=== PATIENT | male | born 1950 | race Caucasian/White ===

== ENCOUNTER → 2018-07-23 | Outpatient (CLI) | payer MEDICARE ==
[~2018-07-23] MED LIST: ACHYD1T PO; ASP325TEC PO; ATOR40TA PO; CARV6.252 PO; CPR500T PO; DUTA1CPM PO; MTF500T PO; OMG1KC PO; PHEN200T27 PO; PYRI200T4 PO; VITA200C18 PO
[2018-07-23 06:57] LABS: ABSOLUTE RETIC # 48 10e9/L (24-90); BASOPHILS # (AUTO) 0.1 10^3/uL (0.0-0.1); BASOPHILS % (AUTO) 1 % (0-10); EOSINOPHILS # (AUTO) 0.3 10^3/uL (0.0-0.3); EOSINOPHILS % (AUTO) 7 % (0-10); HEMATOCRIT 27 % (40-54); HEMOGLOBIN 7.1 G/DL (13.3-17.7); LYMPHOCYTES # (AUTO) 1.7 X 10^3 (1.0-4.0); LYMPHOCYTES % (AUTO) 33 % (12-44); MEAN CORPUSCULAR HEMOGLOBIN 18 PG (25-34); MEAN CORPUSCULAR HGB CONC 27 G/DL (32-36); MEAN CORPUSCULAR VOLUME 69 FL (80-99); MEAN PLATELET VOLUME 9.5 FL (7.4-10.4); MONOCYTES # (AUTO) 0.7 X 10^3 (0.0-1.0); MONOCYTES % (AUTO) 13 % (0-12); NEUTROPHILS # (AUTO) 2.3 X 10^3 (1.8-7.8); NEUTROPHILS % (AUTO) 46 % (42-75); PLATELET COUNT 306 10^3/uL (130-400); RED CELL DISTRIBUTION WIDTH 20.5 % (10.0-14.5); RETICULOCYTE % 1.25 % (0.50-2.40)
[2018-07-23 08:30] LABS: ANISOCYTOSIS SLIGHT; BAND NEUTROPHILS 0 %; BASOPHILS % (MANUAL) 0 %; ELLIPT/OVALOCYTES SLIGHT; EOSINOPHILS % (MANUAL) 6 %; HYPOCHROMASIA SLIGHT; LYMPHOCYTES % (MANUAL) 26 %; MICROCYTOSIS SLIGHT; MONOCYTES % (MANUAL) 10 %; NEUTROPHILS % (MANUAL) 58 %; POIKILOCYTOSIS SLIGHT
== END ==
LOC: LAB 06:35
PROVIDERS: ATTEND Nurse Practitioner Family
DX: D64.9 Anemia, unspecified (principal)
CPT/HCPCS: 36415; 82607; 82728; 82746; 83540; 85007; 85027; 85045

== ENCOUNTER 2018-07-24 08:52 | Outpatient (CLI) | payer MEDICARE ==
[~2018-07-24] VITALS: Ht 180.3 cm; Wt 113.4 kg
[2018-07-24] VITALS (7 sets, daily range): BP systolic 134–178; BP diastolic 76–102
== END 2018-07-24 15:10 | disposition home or self-care (01) ==
LOC: SDC 08:52
PROVIDERS: ATTEND Family Medicine
DX: D64.9 Anemia, unspecified (principal)
CPT/HCPCS: 36415; 36430; 85014; 85018; 86850; 86900; 86901; 86920

== ENCOUNTER → 2018-08-13 | Outpatient (CLI) | payer MEDICARE ==
--- NOTE | 2018-08-13 12:25 | Diagnostic Imaging Report ---
PROCEDURE: CT urinary tract, rule out kidney stone. TECHNIQUE: Multiple contiguous axial images were obtained through the abdomen and pelvis without the use of intravenous contrast. INDICATION: Hematuria, nephrolithiasis. CORRELATION STUDY: 01/09/2013. FINDINGS: LOWER THORAX: Few areas of wispy-like density including the lingula, left upper lobe, as well as medial right lower lobe are present. They do appear to be somewhat changed from prior study. Suggestion of some thickening along the minor fissure plane. Heart size is mildly enlarged. Small hiatal hernia. LIVER: Unremarkable. GALLBLADDER: Multiple small gallstones are present. No suggestion for significant bile ductal dilatation. SPLEEN: Unremarkable. PANCREAS: Mild diffuse fatty atrophic changes are present. ADRENAL GLANDS: Unremarkable. KIDNEYS: There is presence of bilateral renal stones. The overall stone burden has increased since prior study. There is now a larger developing staghorn-type calculus of the right renal pelvis measuring approximately 3.4 x 1.2 cm in axial plane x 2.5 cm craniocaudal. Additional smaller stones about the superior and inferior pole are present. Slightly exophytic mass in the superior pole of the right kidney, incompletely characterized but favors probable cyst but does appear to be more prominent from prior study. On the left, slightly fragmented stone at the renal pelvis measures approximately 13 x 10 mm in the axial plane x 11 mm craniocaudal. Additional smaller nonobstructing over the superior and inferior poles as well. 2.3 x 1.5 x 2.2 cm slightly exophytic mass at the anterior interpolar region of the left kidney is present, incompletely characterized but does appear to be of fairly low density. There is no suggestion for overt hydronephrosis of either kidney. No definitive ureteric stone. There may be a partially duplicated right renal collecting system. ABDOMINAL AORTA: Unremarkable, nonaneurysmal. GASTROINTESTINAL TRACT: Extensive surgical changes at the level of the stomach are present. Gastrointestinal tract demonstrates no obstruction. No definitive evidence for inflammation. Colonic diverticulosis, particularly of the sigmoid and distal descending colon. Mild severity of fecal retention. Fat-containing bilateral inguinal hernias, left greater than right. No bowel involvement. URINARY BLADDER: There are multiple, likely at least 15 or more bladder stones present of various sizes. These ranging from a few millimeters up to 15 mm in size. The overall bladder stone burden has increased. Bladder is relatively decompressed. REPRODUCTIVE: Prostate gland is enlarged measuring 6.3 x 5.0 cm. OSSEOUS STRUCTURES: Extensive prior internal fixation hardware has been placed over the left hemipelvis. Mild anteriorly wedged lower thoracic and lumbar vertebral bodies. No acute bony abnormalities are suggested. OTHER: None. IMPRESSION: 1. Bilateral nephrolithiasis and presence of multiple bladder stones. The overall severity of stone burden has increased over both the kidneys as well as within the urinary bladder. Developing bilateral staghorn calculus are noted, right greater than left. 2. Low-density masses of both kidneys, not completely characterized on prior studies but favor probable renal cysts. 3. Cholelithiasis. 4. Colonic diverticulosis. 5. Patchy densities at the lung bases. These may be reflective of some areas of scarring or atelectasis. The possibility of superimposed pneumonitis is not excluded by imaging findings. Dictated by: Dictated on workstation # [id number]
== END ==
LOC: RAD 11:31
PROVIDERS: ATTEND Nurse Practitioner Family
DX: N20.0 Calculus of kidney (principal); N21.0 Calculus in bladder; N28.89 Other specified disorders of kidney and ureter; K80.20 Calculus of gallbladder without cholecystitis without obstruction; K57.30 Diverticulosis of large intestine without perforation or abscess without bleeding; J98.4 Other disorders of lung
CPT/HCPCS: 74176

== ENCOUNTER → 2018-09-16 | Outpatient (CLI) | payer MEDICARE ==
--- NOTE | 2018-09-16 14:48 | Diagnostic Imaging Report ---
INDICATION: Hematuria. COMPARISON: 02/04/2013 FINDINGS: Two supine radiographic views of the abdomen were obtained and again show bilateral nephrolithiasis as well as multiple bulky calcifications projecting over the urinary bladder. Postsurgical changes in the left hemipelvis are also again noted. No unexpected radiopaque foreign bodies are seen. Small bowel loops are nondistended. There is no large collection of free intraperitoneal air. Included portions of the lung bases are clear. IMPRESSION: 1. Bilateral nephrolithiasis. 2. Multiple bulky calculi within the urinary bladder. 3. Nonobstructive small bowel gas pattern. Dictated by: Dictated on workstation # [id number]
== END ==
LOC: RAD 12:29
PROVIDERS: ATTEND Urology
DX: N20.0 Calculus of kidney (principal); N21.0 Calculus in bladder; Z98.890 Other specified postprocedural states
CPT/HCPCS: 74018

== ENCOUNTER 2018-09-24 05:47 | Outpatient (CLI) | payer MEDICARE ==
[~2018-09-24] VITALS: Ht 180.3 cm; Wt 113.4 kg
== END 2018-09-24 10:24 | disposition home or self-care (01) ==
LOC: PREOP 05:47
PROVIDERS: ATTEND Surgery
DX: Z01.818 Encounter for other preprocedural examination (principal)

== ENCOUNTER 2018-10-01 08:51 | Day surgery (SDC) | payer MEDICARE ==
[~2018-10-01] VITALS: Ht 180.3 cm; Wt 113.4 kg
--- OUTSIDE RECORDS SUMMARY | 2018-10-01 08:55 | XMS REPORT ---
Author Author WHITNEY FAJARDO [facility] Address [address] [place] [address] Care Team Providers Care Service Desk Manager Name Role Phone WHITNEY FAJARDO Unavailable PROBLEMS Type Condition ICD9-CM Code OWZ74-EJ Code Onset Dates Condition Status SNOMED Code Problem Acute pain of right knee M25.561 Active 38854012 Problem Unspecified prostatitis 601.9 Active 5176271 Problem Suspected chronic obstructive pulmonary disease based on initial evaluation J44.9 Active 91521382 Problem Right hand pain M79.641 Active 49959405 Problem Essential hypertension I10 Active 09264880 Problem Diabetes mellitus type 2 in nonobese E11.9 Active 986815627 Problem Renal calculi N20.0 Active 84999926 Problem Arthritis of right knee M19.90 Active 145935010 ALLERGIES Substance Reaction Event Type Date Status Glipizide 2.5 Mg Tablet Extended Release 24hr Unknown Non Drug Allergy Dec, Active ENCOUNTERS Encounter Location Date Diagnosis [facility] [address] [place] [address] [id number] Feb, [facility] [id number] [place] [address] [id number] Jan, Renal calculi N20.0 [facility] [address] [place] [address] [id number] Dec, Hematuria, unspecified type R31.9 ; Renal calculi N20.0 and Angular cheilitis K13.0 [facility] [address] [place] [id number] [address] Nov, Dental caries K02.9 [facility] [address] [place] [address] [id number] Nov, Chronic cough R05 and Suspected chronic obstructive pulmonary disease based on initial evaluation J44.9 [facility] [id number] [place] [address] [id number] Nov, Cough R05 [facility] [address] [id number] [id number] Nov, Bronchitis J40 [facility] [address] [id number] [address] October, Encounter for dental examination Z01.20 [facility] [id number] [place] [address] [id number] May, Essential hypertension I10 and Arthritis of right knee M19.90 [facility] [id number] [id number] Jan, Essential hypertension I10 ; Diabetes mellitus type 2 in nonobese E11.9 and Screening for prostate cancer Z12.5 [facility] [address] [place] [address] [id number] Dec, Vertigo R42 and Essential hypertension I10 [facility] [address] [place] [address] [id number] October, Acute cystitis with hematuria N30.01 and History of kidney stones Z87.442 [facility] [address] [id number] Jul, Essential hypertension I10 [facility] [address] [place] [address] [id number] Jun, Right hand pain M79.641 and Essential hypertension I10 [address] [id number] [place] [id number] Jun, Right hand pain M79.641 [facility] [id number] [id number] Apr, Arthritis of right knee M19.90 ; Right hand pain M79.641 ; Essential hypertension I10 and Diabetes mellitus type 2 in nonobese E11.9 [facility] [address] [place] [address] [id number] Mar, Essential hypertension I10 and Renal calculi N20.0 [facility] [address] [place] [address] [id number] Feb, 2016 Essential hypertension I10 ; Arthritis of right knee M19.90 ; Insect bite , initial encounter W57.XXXA and Boil of lower extremity L02.429 [facility] [id number] [place] [address] [id number] Feb, [facility] [id number] [place] [address] [id number] Jan, Arthritis of right knee M19.90 and Essential hypertension I10 [facility] [id number] [place] [address] [id number] Jan, Acute pain of right knee M25.561 [facility] [address] [id number] [place] [id number] Jan, Acute pain of right knee M25.561 [facility] [place] [id number] [place] [address] [id number] Dec, Acute pain of right knee M25.561 and Diabetes mellitus type 2 in nonobese E11.9 [facility] [id number] [place] [address] Sep, [facility] [id number] [place] [address]7074- 3398 Sep, [facility] [id number] [place] [address] [id number] May, [facility] [id number] [place] [address]- 7816 May, [facility] [id number] [place] [address] 91842- 7951 Jan, [facility] [id number] [place] [address] 48163[address] 4432 Jan, [facility] [id number] [place] [address] 9982 Jan, [facility] [id number] [place] [address] [id number] Jan, [facility] [id number] [place] [address] 77543- 3705 Jan, [facility] [place] [facility] [address] [id number] [place] [address] Jan, [facility] [place] [address] [id number] [place] [id number] Jan, [facility] [place] [facility] [address] [facility] [id number] [place] 401[address]- 7128 Jan, [facility] [place] [facility] [address] [facility] [id number] [place] [address] Jan, [facility] [address] [id number] [place] [id number] Dec, [facility] [place] [facility] [address] [facility] [id number] [place] [address]272 Dec, [facility] [address] [facility] [id number] [place] [id number] Dec, [facility] [place] [facility] [address] [facility] [id number] [place] [address] Dec, [facility] [address] [facility] [id number] [place] [id number] Dec, [facility] [place] [facility] [address] [facility] [id number] [place] [address] Dec, [facility] [address] [facility] [id number] [place] [id number] Dec, [facility] [place] [facility] [address] [facility] [id number] [place] [address] Nov, [facility] [address] [id number] [place] [id number] Nov, [facility] [place] [facility] [address] [facility] [id number] [place] [address] October, [facility] [address] [id number] [place] [id number] October, [facility] [address] [id number] [place] [id number] Aug, [facility] [address] [id number] [place] [id number] Aug, [facility] [address] [id number] [place] [phone] Aug, [facility] [address] [id number] [place] [id number] Aug, [facility] [address] [id number] [place] [id number] Aug, [facility] [address] [id number] [place] [id number] Jun, [facility] [address] [id number] [place] [id number] Jun, [facility] [address] [id number] [place] [id number] Apr, [facility] [address] [place] [address]7097- 4139 Apr, [facility] [address] [id number] [place] [id number] Mar, [facility] [id number] [address] Mar, [facility] [address] [id number] [place] [id number] Feb, [facility] [address] [id number] [place] [id number] Jan, [facility] [address] [id number] [place] [id number] October, [facility] [address] [place] [address] October, [facility] [address] [id number] [place] [id number] Jul, [facility] [address] [id number] [place] [id number] Jun, [facility] [address] [place] [address] Mar, [facility] [place] [facility] [address] [place] [address] 7773 May, [facility] [address] [id number] [address] 07 May, 2010 [facility] [address] [place] [address] May, [facility] [address] [place] [address] 1709 Apr, [facility] [address] [place] [address] 4668 Apr, [facility] [address] [id number] [address] 7026 Apr, [facility] [address] [place] [address] 08123- 0619 Jan, [facility] [address] [place] [address] October, [facility] [address] [place] [address] 25565- 1349 Jul, [facility] [address] [place] [address]- 2015 Apr, [facility] [address] [place] [address] Apr, [facility] [address] [place] [address] Jan, [facility] [id number] [address] Aug, IMMUNIZATIONS No Known Immunizations SOCIAL HISTORY Never Assessed REASON FOR VISIT having blood in urination x 2 weeks, started having right sided pain on Saturday. tonia Frost PLAN OF CARE Activity Details Follow Up 1 Week Reason:flank pain VITAL SIGNS Height 71 in 2018-01-16 Weight 240 lbs 2018-01-16 Temperature 98.2 degrees Fahrenheit 2018-01-16 Heart Rate 68 bpm 2018-01-16 Respiratory Rate 16 2018-01-16 BMI 33.47 kg/m2 2018-01-16 Blood pressure systolic 140 mmHg 2018-01-16 Blood pressure diastolic 70 mmHg 2018-01-16 MEDICATIONS Medication Instructions Dosage Frequency Start Date End Date Duration Status Tamsulosin HCl 0.4 MG Orally Once a day 1 capsule 24h Dec,Jan 30 day(s) Active Hydrocodone-Acetaminophen 5-325 MG Orally 3 times a day 1 tablet as needed 8h Dec, Active Advair Diskus 250-50 MCG/DOSE Inhalation Twice a day 1 puff 12h Nov, Active Blodgett 7.5-325 MG Orally with food every 6 hrs 1 tablet as needed for pain 6h Nov, 3 days Active Fluconazole 100 mg Orally qod 1 tablet Dec, Jan, 10 day( s) Active Albuterol Sulfate HFA 108 (90 Base) mcg/act Inhalation 4 times a day 2 puffs as needed 6h Nov, Active Singulair 10 mg Orally Once a day 1 tablet 24h Nov, 30 day(s) Active RESULTS Name Result Date Reference Range UA LONG DIP (IN HOUSE) 2018-01-16 Lot # [id number] Exp date 10/10 Clarity cloudy Color dark yellow Odor no GLU neg ELISABETH neg KET neg SG >=1.030 BLO 3+ pH 5.5 Protein 3+ URO 0.2 NIT neg NEISHA neg Lot # Exp date CT Scan : Abd & Pelvis w/o contrast (STONE PROTOCOL) 2018-01-24 PROCEDURES Procedure Date Ordered Result Body Site URINALYSIS, AUTO, W/O SCOPE January 16, 2018 [facility] VISIT ESTABLISHED PATIENT January 16, 2018 INSTRUCTIONS MEDICATIONS ADMINISTERED No Known Medications MEDICAL (GENERAL) HISTORY Type Description Date Medical History hypertension Medical History sciatica Medical History back pain Medical History Diabetes mellitus without mention of complication, type II or unspecified type, not stated as uncontrolled Medical History Bariatric surgery status Surgical History gastric bypass 2012 Surgical History right knee arthroscopy Surgical History hardware left hip/pelvis Hospitalization History surgeries
--- OUTSIDE RECORDS SUMMARY | 2018-10-01 08:55 | XMS REPORT ---
Author Author Migration, Doctor Organization [facility] Address Unknown Phone Unavailable Care Team Providers Care Aviation Manager Name Role Phone Migration, Doctor Unavailable Unavailable PROBLEMS Type Condition ICD9-CM Code QJG61-UT Code Onset Dates Condition Status SNOMED Code Problem Diabetes mellitus type 2 in nonobese E11.9 Active 869092636 Problem Acute pain of right knee M25.561 Active 63143710 Problem Suspected chronic obstructive pulmonary disease based on initial evaluation J44.9 Active 62875849 Problem Iron deficiency anemia, unspecified iron deficiency anemia type D50.9 Active 68853646 Problem Arthritis of right knee M19.90 Active 486852386 Problem Essential hypertension I10 Active 37982814 Problem Renal calculi N20.0 Active 11908304 Problem Right hand pain M79.641 Active 86698770 ALLERGIES No Information ENCOUNTERS Encounter Location Date Diagnosis [address] [id number] [id number] Aug, [address] [id number] Jul, Iron deficiency anemia, unspecified iron deficiency anemia type D50.9 ; Arthritis of right knee M19.90 ; Renal calculi N20.0 ; Hematuria, unspecified type R31.9 and Suspected chronic obstructive pulmonary disease based on initial evaluation J44.9 [id number] [id number] Jun, [facility] [place] [address] [facility] [id number] [place] [address] [address] Jun, Anemia, unspecified type D64.9 [id number] [id number] Jun, Anemia, unspecified type D64.[address] [id number] [place] [phone] Jun, Low hemoglobin D64.[address] [place] [address] [id number] Jun, Low hemoglobin D64.9 [facility] [id number] [place] [address] [id number] Jun, Renal calculi N20.0 and Suspected chronic obstructive pulmonary disease based on initial evaluation J44.9 [facility] [id number] [place] [address] [id number] Apr, Diabetes mellitus type 2 in nonobese E11.9 ; Renal calculi N20.0 ; Suspected chronic obstructive pulmonary disease based on initial evaluation J44.9 and Essential hypertension I10 [facility] [id number] [place] [address] [id number] Mar, Renal calculi N20.0 and Suspected chronic obstructive pulmonary disease based on initial evaluation J44.9 [facility] [id number] [place] [address] [id number] Jan, Renal calculi N20.0 [facility] [id number] [place] [address] [id number] Dec, Hematuria, unspecified type R31.9 ; Renal calculi N20.0 and Angular cheilitis K13.0 [facility] [id number] [place] [address] Nov, Dental caries K02.9 [facility] [id number] [place] [address] [id number] Nov, Chronic cough R05 and Suspected chronic obstructive pulmonary disease based on initial evaluation J44.9 [facility] [id number] [place] [address] [id number] Nov, Cough R05 [address] [id number] [place] [address] [id number] Nov, Bronchitis J40 [facility] [id number] [place] [address] October, Encounter for dental examination Z01.20 [facility] [id number] [place] [address] [id number] May, Essential hypertension I10 and Arthritis of right knee M19.90 [facility] [id number] [place] [address] [id number] Jan, Essential hypertension I10 ; Diabetes mellitus type 2 in nonobese E11.9 and Screening for prostate cancer Z12.5 [address] [id number] [place] [address] [id number] Dec, Vertigo R42 and Essential hypertension I10 [address] [id number] October, Acute cystitis with hematuria N30.01 and History of kidney stones Z87.[id number] [place] [address] [id number] Jul, Essential hypertension I10 [id number] [place] [address] [id number] Jun, Right hand pain M79.641 and Essential hypertension I10 [address] [id number] [place] [phone] Jun, Right hand pain M79.641 [facility] [id number] [place] [address] [id number] Apr, Arthritis of right knee M19.90 ; Right hand pain M79.641 ; Essential hypertension I10 and Diabetes mellitus type 2 in nonobese E11.9 [id number] [place] [address] [id number] Mar, Essential hypertension I10 and Renal calculi N20.0 [id number] [place] [address] [id number] Feb, Essential hypertension I10 ; Arthritis of right knee M19.90 ; Insect bite , initial encounter W57.XXXA and Boil of lower extremity L02.429 [id number] [place] [address] [id number] Feb, [address] [id number] Jan, Arthritis of right knee M19.90 and Essential hypertension I10 [id number] [place] [address] [id number] Jan, Acute pain of right knee M25.561 [facility] [address] [id number] [place] [id number] Jan, Acute pain of right knee M25.561 [facility] [place] [address] [facility] [id number] [id number] Dec, Acute pain of right knee M25.561 and Diabetes mellitus type 2 in nonobese E11.9 [facility] [place] [address] [id number] [place] [address] Sep, [facility] [address] [id number] [place] [address] 3[address] Sep, [facility] [place] [address] [facility] [id number][place] [id number] May, [facility] [address] [facility] [id number] [place] [address] 67[address] May, [facility] [address] [id number] [address]- 65[address] Jan, [facility] [address] [id number] [address]- 4[address] Jan, [facility] [address] [facility] [id number] [place] [address] Jan, [facility] [place] [address] [id number] [id number] Jan, [facility] [address] [facility] [id number] [place] [address]- [address] Jan, [facility] [address] [id number] [place] 09[place]- 9190 Jan, [facility] [place] [address] [facility] [id number], [place] [phone] Jan, [facility] [address] [facility] [id number] [place] [address]- [address]39 Jan, [facility] [address] [facility] [id number] [place] [address]- [address] Jan, [facility] [address] [id number] [place] [id number] Dec, [facility] [address] [facility] [id number] [place] [address]- 9[address] Dec, [facility] [address] [id number] [place] [id number] Dec, [facility] [address] [facility] [id number] [place] [address]- [address] Dec, [facility] [address] [id number] [place] [id number] Dec, [facility] [address] [facility] [id number] [place] [address]- 7184 Dec, [facility] [address] [id number] [place] [id number] Dec, [facility] [address]00565100[place] [address]- 9152 Nov, [facility] [address] [id number] [place] [id number] Nov, [facility] [address] [facility] [id number] [place] 52212328- 8005 October, [facility] [address] [id number] [place] [id number] October, [facility] [address] [id number] [place] [id number] Aug, [facility] [address] [id number] [place] [id number] Aug, [facility] [address] [id number] [place] [id number] Aug, [facility] [address] [id number] [place] [id number] Aug, [facility] [address] [id number] [place] [id number] Aug, [facility] [address] [id number] [place] [id number] Jun, [facility] [address] [id number] [place] [id number] Jun, [facility] [address] [id number] [place] [id number] Apr, [facility] [place] [facility] [address] [id number] [place] [address]- 2546 Apr, [facility] [address] [id number] [place] [id number] Mar, [facility] [place] [facility] [address] [facility] [id number] [place] [address]- 2546 Mar, [facility] [address] [id number] [place] [id number] Feb, [facility] [address] [id number] [place] [id number] Jan, [facility] [address] [id number] [place] [id number] October, [facility] [place] [facility] [address] [facility] [id number] [place] [address]- 2546 October, [facility] [address] [id number] [place] [id number] Jul, [facility] [address] [id number] [place] [id number] Jun, [facility] [place] [facility] [address] [facility] [id number] [place] [address]- 4896 Mar, [facility] [place] [facility] [address] [facility] [id number] [place] [address]- 2316 May, [facility] [place] [facility] [address] [facility] [id number] [place] [address]- [address] May, [facility] [place] [facility] [address] [facility] [id number] [place] [address]- 7084 May, [facility] [place] [facility] [address] [facility] [id number] [place] [address]- 8923 Apr, [facility] [place] [facility] [address] [facility] [id number] [place] [address]- 9681 Apr, [facility] [place] [facility] [address] [id number] [address]- 2546 Apr, [facility] [place] [address] [id number] [address]- [address] Jan, [facility] [place] [address]00565100[place] [address]- 2546 October, [facility] [place] [address]00565100[place] [address]- 2546 Jul, [facility] [place] [address]00565100[place] [address]- 2546 Apr, [facility] [place] [address]00565100[place] [address]- 8132 Apr, [facility] [place] [address]00565100[place] [address] 2546 Jan, [facility] [place] [address]00565100[place] [address]- [address] Aug, IMMUNIZATIONS No Known Immunizations SOCIAL HISTORY Never Assessed REASON FOR VISIT EMR-[facility]AN OF CARE VITAL SIGNS MEDICATIONS Unknown Medications RESULTS No Results PROCEDURES No Known procedures INSTRUCTIONS MEDICATIONS ADMINISTERED No Known Medications MEDICAL (GENERAL) HISTORY Type Description Date Medical History hypertension Medical History sciatica Medical History back pain Medical History Diabetes mellitus without mention of complication, type II or unspecified type, not stated as uncontrolled Medical History Bariatric surgery status Surgical History gastric bypass 2012 Surgical History right knee arthroscopy Surgical History hardware left hip/pelvis Hospitalization History surgeries Hospitalization History outpt blood transfusion 07/2018
--- OUTSIDE RECORDS SUMMARY | 2018-10-01 08:56 | XMS REPORT ---
Author Author WHITNEY FAJARDO [facility] Address [address] [place] [address] Care Team Providers Care Section Hand Name Role Phone WHITNEY FAJARDO Unavailable PROBLEMS Type Condition ICD9-CM Code NDJ40-IB Code Onset Dates Condition Status SNOMED Code Problem Acute pain of right knee M25.561 Active 62500283 Problem Unspecified prostatitis 601.9 Active 4235968 Problem Suspected chronic obstructive pulmonary disease based on initial evaluation J44.9 Active 57948180 Problem Right hand pain M79.641 Active 30829474 Problem Essential hypertension I10 Active 18390860 Problem Diabetes mellitus type 2 in nonobese E11.9 Active 133172918 Problem Renal calculi N20.0 Active 85794141 Problem Arthritis of right knee M19.90 Active 153113131 ALLERGIES Substance Reaction Event Type Date Status GlipiZIDE unknown Drug Allergy Jan, Active ENCOUNTERS Encounter Location Date Diagnosis [facility] [address] [place] [address] [id number] Feb, [facility] [id number] [place] [address] [id number] Jan, Renal calculi N20.0 [facility] [address] [place] [address] [id number] Dec, Hematuria, unspecified type R31.9 ; Renal calculi N20.0 and Angular cheilitis K13.0 [facility] [address] [place] [id number] [address] Nov, Dental caries K02.9 [facility] [address] [place] [address] [id number] Nov, Chronic cough R05 and Suspected chronic obstructive pulmonary disease based on initial evaluation J44.9 [facility] [address] [place] [address] [id number] Nov, Cough R05 [facility] [id number] [place] [id number] Nov, Bronchitis J40 [facility] [address] [place] [id number] [address] October, Encounter for dental examination Z01.20 [facility] [id number] [place] [address] [id number] May, Essential hypertension I10 and Arthritis of right knee M19.90 [facility] [id number] [place] [address] [id number] Jan, Essential hypertension I10 ; Diabetes mellitus type 2 in nonobese E11.9 and Screening for prostate cancer Z12.5 [facility] [id number] [place] [address] [id number] 14 Dec, 2016 Vertigo R42 and Essential hypertension I10 [facility] [id number] [place] [address] [id number] October, Acute cystitis with hematuria N30.01 and History of kidney stones Z87.442 [facility] [id number] [place] [id number] Jul, Essential hypertension I10 [facility] [id number] [place] [address] [id number] Jun, Right hand pain M79.641 and Essential hypertension I10 [address] [id number] [id number] Jun, Right hand pain M79.641 [facility] [id number] [place] [address] [id number] Apr, Arthritis of right knee M19.90 ; Right hand pain M79.641 ; Essential hypertension I10 and Diabetes mellitus type 2 in nonobese E11.9 [facility] [address] [place] [address] [id number] Mar, Essential hypertension I10 and Renal calculi N20.0 [facility] [id number] [place] [address] [id number] 15 Feb, 2016 Essential hypertension I10 ; Arthritis of right knee M19.90 ; Insect bite , initial encounter W57.XXXA and Boil of lower extremity L02.429 [facility] [place] [id number] [place] [id number] Feb, [facility] [place] [id number] [place] [address] [id number] Jan, Arthritis of right knee M19.90 and Essential hypertension I10 [facility] [place] [id number] [place] [address] [id number] Jan, Acute pain of right knee M25.561 [facility] [place] [address] [id number][place] [id number] Jan, Acute pain of right knee M25.561 [facility] [place] [id number] [place] [address] [id number] Dec, Acute pain of right knee M25.561 and Diabetes mellitus type 2 in nonobese E11.9 [facility] [place] [id number] [place] [address] [id number]- 3908 Sep, [facility] [place] [id number] [place] [address]56- 9001 Sep, [facility] [id number] [place] [address] [id number] May, [facility] [place] [id number] [place] [address] 28407- 5952 May, [facility] [place] [address] [place] [address] [id number]- 2456 Jan, [facility] [place] [id number] [place] [address] 10786336- 2820 Jan, [facility] [place] [id number] [place] [address] [id number]- 3705 Jan, [facility] [id number] [place] [address] [id number] Jan, [facility] [place] [address] [place] [address] 319887- 4919 Jan, [facility] [place] [address] [id number] [address]- 0479 Jan, [facility] [address] [id number] [place] [id number] Jan, [facility] [place] [facility] [address] [facility] [id number] [place] [address]- 7660 Jan, [facility] [place] [facility] [address] [facility] [id number] [place] [address]- 4026 Jan, [facility] [address] [id number] [place] [id number] Dec, [facility] [place] [facility] [address] [id number] [place] [address]- 9341 Dec, [facility] [address] [id number] [place] [id number] Dec, [facility] [place] [facility] [address] [facility] [id number], [place] [address]- 1083 Dec, [facility] [address] [id number] [place] [id number] Dec, [facility] [place] [facility] [address] [facility] [id number], [place] [address]- 6088 Dec, [facility] [address] [id number] [place] [id number] Dec, [facility] [place] [facility] [address] [facility] [id number], [place] [address]- 2649 Nov, [facility] [address] [id number] [place] [id number] Nov, [facility] [place] [facility] [address] [id number], [place] [address]- 3260 October, [facility] [address] [id number] [place] [id number] October, [facility] [address] [id number] [place] [id number] Aug, [facility] [address] [id number] [place] 038662274 Aug, [facility] [place] [address] [id number] [place] [id number] Aug, [facility] [place] [address] [id number] [place] [id number] Aug, [facility] [place] [address] [id number] [place] [id number] Aug, [facility] [place] [address] [id number] [place] [id number] Jun, [facility] [place] [address] [id number] [place] [id number] Jun, [facility] [place] [address] [id number] [place] [id number] Apr, [facility] [address] [facility] [id number], [place] [address]- 7906 Apr, [facility] [place] [address] [id number] [place] [id number] Mar, [facility] [address]00565100[place], [place] [address]- 7826 Mar, [facility] [place] [address] [id number] [place] [id number] Feb, [facility] [address] [id number] [place] [id number] Jan, [facility] [address] [id number] [place] [id number] October, [facility] [address]00565100[place], [place] [address]- 3466 October, [facility] [address] [id number] [place] [id number] Jul, [facility] [address] [id number] [place] [id number] Jun, [facility] [address]00565100[place], [place] [address]- 8076 Mar, [facility] [address]00565100[place], [place] [address]- 9886 May, [facility] [address]00565100[place], [place] [address]- 0685 May, [facility] [place] [address]00565100[place], [place] [address]- 4686 May, [facility] [place] [address] [place] [address] 08689- 6907 Apr, [facility] [place] [address] [place] [address] 34387- 7767 Apr, [facility] [place] [id number] [place] [address] 04080- 5019 Apr, [facility] [place] [address] [place] [phone] Jan, [facility], [place], [facility] [id number] [place] [address] [phone] October, [facility], [place], [facility] [id number] [place] [address] [phone] Jul, [facility], [place], [facility] [id number] [place] [address] [phone] Apr, [facility], [place], [facility] [id number] [place] [address] [phone] Apr, [facility], [place], [facility] [id number] [place] [address] [phone] Jan, [facility], [place], [facility] [id number] [phone] Aug, IMMUNIZATIONS No Known Immunizations SOCIAL HISTORY Never Assessed REASON FOR VISIT Discuss CT results, still having pain and hematuria--MIREYA Tpaia PLAN OF CARE Activity Details Follow Up 4 Weeks Reason:kidney stone VITAL SIGNS Height 71 in 2018-01-28 Weight 237.4 lbs 2018-01-28 Temperature 98.2 degrees Fahrenheit 2018-01-28 Heart Rate 82 bpm 2018-01-28 Respiratory Rate 16 2018-01-28 BMI 33.11 kg/m2 2018-01-28 Blood pressure systolic 150 mmHg 2018-01-28 Blood pressure diastolic 90 mmHg 2018-01-28 MEDICATIONS Medication Instructions Dosage Frequency Start Date End Date Duration Status Albuterol Sulfate HFA 108 (90 Base) mcg/act Inhalation 4 times a day 2 puffs as needed 6h Nov, Not-Taking Tamsulosin HCl 0.4 MG Orally Once a day 1 capsule 24h Dec,Jan Active Singulair 10 mg Orally Once a day 1 tablet 24h Nov, 30 day(s) Not-Taking Advair Diskus 250-50 MCG/DOSE Inhalation Twice a day 1 puff 12h Nov, Not-Taking Hydrocodone-Acetaminophen 5-325 MG Orally 3 times a day 1 tablet as needed 8h Dec, Active RESULTS Name Result Date Reference Range UA LONG DIP (IN HOUSE) 2018-01-28 Lot # [id number] Exp date 05/23/18 Clarity cloudy Color brown Odor no GLU trace ELISABETH neg KET neg SG 1.025 BLO 3+ pH 6.0 Protein 3+ URO 1.0 NIT neg NEISHA neg Lot # Exp date PROCEDURES Procedure Date Ordered Result Body Site [facility] VISIT ESTABLISHED PATIENT Jan 28, 2018 URINALYSIS, AUTO, W/O SCOPE Jan 28, 2018 INSTRUCTIONS MEDICATIONS ADMINISTERED No Known Medications [...]
--- OUTSIDE RECORDS SUMMARY | 2018-10-01 08:56 | XMS REPORT ---
Author Author JODI PAIZ Organization [facility] Address [address] [place] [address] Care Team Providers Care Counter Maker Name Role Phone JODI PAIZ Unavailable PROBLEMS Type Condition ICD9-CM Code CRI26-BY Code Onset Dates Condition Status SNOMED Code Problem Acute pain of right knee M25.561 Active 82829367 Problem Unspecified prostatitis 601.9 Active 3391828 Problem Suspected chronic obstructive pulmonary disease based on initial evaluation J44.9 Active 20747851 Problem Right hand pain M79.641 Active 03828257 Problem Essential hypertension I10 Active 03046644 Problem Diabetes mellitus type 2 in nonobese E11.9 Active 399841146 Problem Renal calculi N20.0 Active 67340554 Problem Arthritis of right knee M19.90 Active 713922923 ALLERGIES Substance Reaction Event Type Date Status Glipizide 2.5 Mg Tablet Extended Release 24hr Unknown Non Drug Allergy Nov, Active ENCOUNTERS Encounter Location Date Diagnosis [facility] [id number] [place] [address] [id number] Feb, [facility] [id number] [place] [address] [id number] Jan, Renal calculi N20.0 [facility] [id number] [place] [address] [id number] Dec, Hematuria, unspecified type R31.9 ; Renal calculi N20.0 and Angular cheilitis K13.0 [facility] [id number] [place] [address] Nov, Dental caries K02.9 [facility] [id number] [place] [id number] Nov, Chronic cough R05 and Suspected chronic obstructive pulmonary disease based on initial evaluation J44.9 [facility] [id number] [phone] Nov, Cough R05 [facility] [id number] [place] [address] [id number] Nov, Bronchitis J40 [facility] [address] [place] [address] October, Encounter for dental examination Z01.20 [facility] [id number] [place] [address] [id number] May, Essential hypertension I10 and Arthritis of right knee M19.90 [facility] [id number] [place] [address] [id number] Jan, Essential hypertension I10 ; Diabetes mellitus type 2 in nonobese E11.9 and Screening for prostate cancer Z12.5 [facility] [address] [place] [address] [id number] Dec, Vertigo R42 and Essential hypertension I10 [facility] [id number] [place] [address] [id number] October, Acute cystitis with hematuria N30.01 and History of kidney stones Z87.442 [facility] [id number] [place] [address] [id number] Jul, Essential hypertension I10 [facility] [id number] [place] [address] [id number] Jun, Right hand pain M79.641 and Essential hypertension I10 [address] [id number] [id number] Jun, Right hand pain M79.641 [facility] [id number] [place] [id number] Apr, Arthritis of right knee M19.90 ; Right hand pain M79.641 ; Essential hypertension I10 and Diabetes mellitus type 2 in nonobese E11.9 [facility] [address] [id number] Mar, Essential hypertension I10 and Renal calculi N20.0 [facility] [id number] [place] [address] [id number] Feb, Essential hypertension I10 ; Arthritis of right knee M19.90 ; Insect bite , initial encounter W57.XXXA and Boil of lower extremity L02.429 [facility] [id number] [place] [address] [id number] Feb, [facility] [id number] [place] [address] [id number] Jan, Arthritis of right knee M19.90 and Essential hypertension I10 [facility] [id number] [place] [address] [id number] Jan, Acute pain of right knee M25.561 [address] [address] [id number][place] [phone] Jan, Acute pain of right knee M25.561 [facility] [place] [id number] [place] [address] [id number] Dec, Acute pain of right knee M25.561 and Diabetes mellitus type 2 in nonobese E11.9 [facility] [id number] [place] [address] [id number]- 4378 Sep, [facility] [id number] [place] [address] 22761- 1524 Sep, [facility] [id number] [place] [address] [id number] May, [facility] [id number] [place] [address] 51163- 5344 May, [facility] [id number] [place] [address] [id number]- 8820 Jan, [facility] [id number] [place] [address] 51229- 4114 Jan, [facility] [id number] [place] [address] [id number]- 1423 Jan, [facility] [id number] [place] [address] [id number] Jan, [facility] [id number] [place] [address] 33499- 6220 Jan, [facility] [place] [facility] [address] [id number] [place] [address]- 2415 Jan, [facility] [place] [address] [id number] [place] [id number] Jan, [facility] [place] [facility] [address] [facility] [id number] [place] [address]- 8601 Jan, [facility] [place] [facility] [address] [facility] [id number] [place] [address]- 0596 Jan, [facility] [address] [id number] [place] [id number] Dec, [facility] [place] [facility] [address] [facility] [id number] [place] [address]- 1550 Dec, [facility] [address] [id number] [place] [phone] Dec, [facility] [place] [facility] [address] [facility] [id number] [address] Dec, [facility] [address] [id number] [place] [id number] Dec, [facility] [place] [facility] [address] [facility] [id number], [place] [address]- 9348 Dec, [facility] [address] [id number] [place] [id number] Dec, [facility] [place] [facility] [address] [facility] [id number], [place] [address]- 1286 Nov, [facility] [address] [id number] [place] [id number] Nov, [facility] [place] [facility] [address] [id number] [place] [address]- 5480 October, [facility] [address] [id number] [place] [id number] October, [facility] [address] [id number] [place] [id number] Aug, [facility] [place] [address] [id number] [place] [id number] Aug, [facility] [place] [address] [id number] [place] [id number] Aug, [facility] [address] [id number] [place] [id number] Aug, [facility] [address] [id number] [place] [id number] Aug, [facility] [address] [id number] [place] [phone] Jun, [facility] [address] [id number] [place] [phone] Jun, [facility] [address] [id number] [place] [id number] Apr, [facility] [address]00565100[place], [place] [address] 3506 Apr, [facility] [address] [id number] [place] [id number] Mar, [facility] [address]00565100[place], [place] [address] 3900 Mar, [facility] [address] [id number] [place] [id number] Feb, [facility] [address] [id number] [place] [id number] Jan, [facility] [address] [id number] [place] [id number] October, [facility] [address]00565100[place], [place] [address] 5[address] October, [facility] [address] [id number] [place] [id number] Jul, [facility] [address] [id number] [place] [phone] Jun, [facility] [place] [address]00565100[place], [place] [address]- 9686 Mar, [facility] [address]00565100[place], [place] [address]- 6128 May, [facility] [address]00565100[place], [place] [address] 2546 May, [facility] [address]00565100[place], [place] [address]- 1046 May, [facility] [address]00565100[place], [place] [address]- 2725 Apr, [facility] [id number] [place] [address] 07252- 0244 Apr, [facility] [address]00565100[place], [place] [address]- 7895 Apr, [facility] [id number] [place] [address] 72811- 4705 Jan, [facility] [address]00565100[place], [place] [address]- 3598 October, [facility] [id number] [place] [address] 73467- 4762 Jul, [facility] [address]00565100[place], [place] [address]- 0841 Apr, [facility] [address]65[address], [place] [address]- 0409 Apr, [facility] [address]00565100[place], [place] [address]- 0784 Jan, [facility] [address] [id number], [place] [address]- 4946 Aug, IMMUNIZATIONS No Known Immunizations SOCIAL HISTORY Never Assessed REASON FOR VISIT Cough for 2 weeks. Had x-ray today Maricruz GOMES PLAN OF CARE Activity Details Follow Up prn if not improving with PCP in 1 week Reason:Cough VITAL SIGNS Height 71 in 2017-12-16 Weight 235.6 lbs 2017-12-16 Temperature 98.5 degrees Fahrenheit 2017-12-16 Heart Rate 74 bpm 2017-12-16 Respiratory Rate 18 2017-12-16 BMI 32.86 kg/m2 2017-12-16 Blood pressure systolic 122 mmHg 2017-12-16 Blood pressure diastolic 64 mmHg 2017-12-16 MEDICATIONS Medication Instructions Dosage Frequency Start Date End Date Duration Status Advair Diskus 250-50 MCG/DOSE Inhalation Twice a day 1 puff 12h Nov, Active Albuterol Sulfate HFA 108 (90 Base) mcg/act Inhalation 4 times a day 2 puffs as needed 6h 12 Nov, 2017 Active Singulair 10 mg Orally Once a day 1 tablet 24h Nov, 30 day(s) Active RESULTS No Results PROCEDURES Procedure Date Ordered Result Body Site [facility] VISIT ESTABLISHED PATIENT December 16, 2017 INSTRUCTIONS MEDICATIONS ADMINISTERED No Known Medications MEDICAL [...]
--- OUTSIDE RECORDS SUMMARY | 2018-10-01 08:56 | XMS REPORT ---
Author Author MARCOS ÁLVAREZ Organization [facility] Address [address] [place] [address] Care Team Providers Care Software Manager Name Role Phone MARCOS ÁLVAREZ Unavailable PROBLEMS Type Condition ICD9-CM Code FKA58-GU Code Onset Dates Condition Status SNOMED Code Problem Acute pain of right knee M25.561 Active 91446354 Problem Unspecified prostatitis 601.9 Active 7343725 Problem Suspected chronic obstructive pulmonary disease based on initial evaluation J44.9 Active 71299144 Problem Right hand pain M79.641 Active 36043070 Problem Essential hypertension I10 Active 00384372 Problem Diabetes mellitus type 2 in nonobese E11.9 Active 070538736 Problem Renal calculi N20.0 Active 43053369 Problem Arthritis of right knee M19.90 Active 939943684 ALLERGIES Substance Reaction Event Type Date Status Glipizide 2.5 Mg Tablet Extended Release 24hr Unknown Non Drug Allergy Nov, Active ENCOUNTERS Encounter Location Date Diagnosis [facility] [id number] [place] [address] [id number] Feb, [facility] [id number] [place] [address] [id number] Jan, Renal calculi N20.0 [facility] [id number] [place] [address] [id number] Dec, Hematuria, unspecified type R31.9 ; Renal calculi N20.0 and Angular cheilitis K13.0 [facility] [id number] [place] [address] Nov, Dental caries K02.9 [facility] [id number] [place] [address] [id number] Nov, Chronic cough R05 and Suspected chronic obstructive pulmonary disease based on initial evaluation J44.9 [facility] [address] [place] [id number] Nov, Cough R05 [facility] [id number], [place] [id number] Nov, Bronchitis J40 [facility] [id number] [address] October, Encounter for dental examination Z01.20 [facility] [id number] [place] [address] [id number] May, Essential hypertension I10 and Arthritis of right knee M19.90 [facility] [id number] [place] [address] [id number] Jan, Essential hypertension I10 ; Diabetes mellitus type 2 in nonobese E11.9 and Screening for prostate cancer Z12.5 [facility] [id number] [place] [address] [id number] 14 Dec, 2016 Vertigo R42 and Essential hypertension I10 [facility] [id number] [place] [address] [id number] October, Acute cystitis with hematuria N30.01 and History of kidney stones Z87.442 [facility] [id number] [place] [address] [id number] Jul, Essential hypertension I10 [facility] [id number] [place] [address] [id number] Jun, Right hand pain M79.641 and Essential hypertension I10 [address] [id number] [place] [id number] Jun, Right hand pain M79.641 [facility] [id number] [place] [address] [id number] Apr, Arthritis of right knee M19.90 ; Right hand pain M79.641 ; Essential hypertension I10 and Diabetes mellitus type 2 in nonobese E11.9 [facility] [id number] [place] [address] [id number] Mar, Essential hypertension I10 and Renal calculi N20.0 [facility] [id number] [place] [address] [id number] Feb, Essential hypertension I10 ; Arthritis of right knee M19.90 ; Insect bite , initial encounter W57.XXXA and Boil of lower extremity L02.429 [facility] [id number] [place] [address] [id number] Feb, [facility] [place] [id number] [place] [address] [id number] Jan, Arthritis of right knee M19.90 and Essential hypertension I10 [facility] [place] [id number] [place] [address] [id number] Jan, Acute pain of right knee M25.561 [facility] [place] [address] [facility] [id number] [place] [id number] Jan, Acute pain of right knee M25.561 [facility] [place] [id number] [place] [address] [id number] Dec, Acute pain of right knee M25.561 and Diabetes mellitus type 2 in nonobese E11.9 [facility] [id number] [place] [address] 398758- 6910 Sep, [facility] [id number] [place] [address] 97282- 0365 Sep, [facility] [id number] [place] [address] [id number] May, [facility] [id number] [place] [address] 34168- 6163 May, [facility] [id number] [place] [address] 64310- 0561 Jan, [facility] [id number] [place] [address] 15845- 3990 Jan, [facility] [id number] [place] [address] [id number]- 8947 Jan, [facility] [id number] [place] [address] [id number] Jan, [facility] [id number] [place] [address] 03005407- 2514 Jan, [facility] [place] [facility] [address] [id number] [place] [address]- 9454 Jan, [facility] [address] [id number] [place] [id number] Jan, [facility] [place] [facility] [address] [id number] [place] [address]- 3116 Jan, [facility] [place] [facility] [address] [facility] [id number] [place] [address]- 6449 Jan, [facility] [address] [id number] [place] [id number] Dec, [facility] [place] [facility] [address] [id number] [place] [address]- 0646 Dec, [facility] [address] [id number] [place] [id number] Dec, [facility] [place] [facility] [address] [facility] [id number] [place] [address]- 5198 Dec, [facility] [address] [id number] [place] [phone] Dec, [facility] [place] [facility] [address] [facility] [id number] [place] [address]- 6846 Dec, [facility] [address] [id number] [place] [id number] Dec, [facility] [place] [facility] [address] [facility] [id number] [address]- 2546 Nov, [facility] [address] [id number] [place] [id number] Nov, [facility] [place] [facility] [address] [id number] [place] [address]- 2546 October, [facility] [address] [id number] [place] [id number] October, [facility] [address] [id number] [place] [id number] Aug, [facility] [address] [id number] [place] [id number] Aug, [facility] [address] [id number] [place] [id number] Aug, [facility] [address] [id number] [place] [address] Aug, [facility] [address] [id number] [place] [id number] Aug, [facility] [address] [id number] [place] [id number] Jun, [facility] [address] [id number] [place] [id number] Jun, [facility] [address] [id number] [place] [id number] Apr, [facility] [address] [facility] [id number], [place] [address]- 7209 Apr, [facility] [address] [id number] [place] [id number] Mar, [facility] [address]00565100[place], [place] [address]- 3626 Mar, [facility] [address] [id number] [place] [id number] Feb, [facility] [address] [id number] [place] [id number] Jan, [facility] [address] [id number] [place] [id number] October, [facility] [address]00565[address], [place] [address]- 7620 October, [facility] [address] [id number] [place] [id number] Jul, [facility] [address] [id number] [place] [id number] Jun, [facility] [address]00565100[place], [place] [address]- 4340 Mar, [facility] [place] [facility] [address]00565100[place], [place] [address]- 8300 May, [facility] [address] [id number], [place] [address]- 7737 May, [facility] [address]00565100[place], [place] [address]- 6491 May, [facility] [address]00565100[place], [place] [address]- 6814 Apr, [facility] [address] [place] [address] 41088- 6252 Apr, [facility] [address] [place] [address] 76450- 7255 Apr, [facility] [id number] [place] [address] 12877- 7257 Jan, [facility] [id number] [place] [address] 53795- 5669 October, [facility] [id number] [place] [address] 58586- 6678 Jul, [facility] [id number] [place] [address] 91097- 6232 Apr, [facility] [id number] [place] [address] 73995- 2721 Apr, [facility] [address]00565100[place], [place] [address]- 5884 Jan, [facility] [address]65100[place], [place] [address]- 8267 Aug, IMMUNIZATIONS No Known Immunizations SOCIAL HISTORY Never Assessed REASON FOR VISIT TE PLAN OF CARE Activity Details Follow Up PRN Reason: VITAL SIGNS Height 71 in 2017-12-17 Heart Rate 75 bpm 2017-12-17 Blood pressure systolic 122 mmHg 2017-12-17 Blood pressure diastolic 64 mmHg 2017-12-17 MEDICATIONS Medication Instructions Dosage Frequency Start Date End Date Duration Status Albuterol Sulfate HFA 108 (90 Base) mcg/act Inhalation 4 times a day 2 puffs as needed 6h 12 Nov, 2017 Active Singulair 10 mg Orally Once a day 1 tablet 24h 25 Nov, 2017 30 day(s) Active Advair Diskus 250-50 MCG/DOSE Inhalation Twice a day 1 puff 12h 25 Nov, 2017 Active Guinda 7.5-325 MG Orally with food every 6 hrs 1 tablet as needed for pain 6h Nov, 3 days Active RESULTS No Results PROCEDURES Procedure Date Ordered Result Body Site EXTRAC ERUPTED TOOTH/EXPOSED ROOT December 17, 2017 EXTRAC ERUPTED TOOTH/EXPOSED ROOT December 17, 2017 SURG REMOVAL ERUPTED TOOTH December 17, 2017 EXTRAC ERUPTED TOOTH/EXPOSED ROOT December 17, 2017 EXTRAC ERUPTED TOOTH/EXPOSED ROOT December 17, 2017 EXTRAC ERUPTED TOOTH/EXPOSED ROOT December 17, 2017 EXTRAC ERUPTED TOOTH/EXPOSED ROOT December 17, 2017 EXTRAC ERUPTED TOOTH/EXPOSED ROOT December 17, 2017 INSTRUCTIONS MEDICATIONS ADMINISTERED No Known Medications [...]
--- OUTSIDE RECORDS SUMMARY | 2018-10-01 08:56 | XMS REPORT ---
Author Author WHITNEY FAJARDO [facility] Address [address] [place] [address] Care Team Providers Care Calibrator Barometers Name Role Phone WHITNEY FAJARDO Unavailable PROBLEMS Type Condition ICD9-CM Code QOZ30-LK Code Onset Dates Condition Status SNOMED Code Problem Acute pain of right knee M25.561 Active 81926556 Problem Unspecified prostatitis 601.9 Active 3184354 Problem Suspected chronic obstructive pulmonary disease based on initial evaluation J44.9 Active 64378398 Problem Right hand pain M79.641 Active 30262774 Problem Essential hypertension I10 Active 98973299 Problem Diabetes mellitus type 2 in nonobese E11.9 Active 332847385 Problem Renal calculi N20.0 Active 18419407 Problem Arthritis of right knee M19.90 Active 861585593 ALLERGIES Substance Reaction Event Type Date Status Glipizide 2.5 Mg Tablet Extended Release 24hr Unknown Non Drug Allergy Nov, Active ENCOUNTERS Encounter Location Date Diagnosis [facility] [id number] [place] [address] [id number] Feb, [facility] [id number] [place] [address] [id number] Jan, Renal calculi N20.0 [facility] [address] [place] [address] [id number] Dec, Hematuria, unspecified type R31.9 ; Renal calculi N20.0 and Angular cheilitis K13.0 [facility] [address] [id number] [address] Nov, Dental caries K02.9 [facility] [address] [place] [address] [id number] Nov, Chronic cough R05 and Suspected chronic obstructive pulmonary disease based on initial evaluation J44.9 [facility] [id number] [place] [address] [id number] Nov, Cough R05 [facility] [address] [id number] [place] [id number] Nov, Bronchitis J40 [facility] [address] [id number] [address] October, Encounter for dental examination Z01.20 [facility] [id number] [place] [address] [id number] May, Essential hypertension I10 and Arthritis of right knee M19.90 [facility] [id number] [place] [id number] Jan, Essential hypertension I10 ; Diabetes mellitus type 2 in nonobese E11.9 and Screening for prostate cancer Z12.5 [facility] [address] [place] [address] [id number] Dec, Vertigo R42 and Essential hypertension I10 [facility] [address] [place] [address] [id number] October, Acute cystitis with hematuria N30.01 and History of kidney stones Z87.442 [facility] [address]100[address] [place] [id number] Jul, Essential hypertension I10 [facility] [address] [place] [address] [id number] Jun, Right hand pain M79.641 and Essential hypertension I10 [address] [id number] [id number] Jun, Right hand pain M79.641 [facility] [id number] [place] [id number] Apr, Arthritis of right knee M19.90 ; Right hand pain M79.641 ; Essential hypertension I10 and Diabetes mellitus type 2 in nonobese E11.9 [facility] [address] [place] [address] [id number] Mar, Essential hypertension I10 and Renal calculi N20.0 [facility] [address] [place] [address] [id number] Feb, 2016 Essential hypertension I10 ; Arthritis of right knee M19.90 ; Insect bite , initial encounter W57.XXXA and Boil of lower extremity L02.429 [facility] [id number] [place] [address] [id number] Feb, [facility] [id number] [place] [address] [id number] Jan, Arthritis of right knee M19.90 and Essential hypertension I10 [facility] [id number] [place] [address] [id number] Jan, Acute pain of right knee M25.561 [facility] [place] [address] [id number][place] [phone] Jan, Acute pain of right knee M25.561 [facility] [place] [id number] [place] [address] [id number] Dec, Acute pain of right knee M25.561 and Diabetes mellitus type 2 in nonobese E11.9 [facility] [id number] [place] [address] Sep, [facility] [id number] [place] [address] 54112- 5902 Sep, [facility] [id number] [place] [address] [id number] May, [facility] [id number] [place] [address] 20996- 7321 May, [facility] [id number] [place] [address] 38779- 9155 Jan, [facility] [id number] [place] [address] 94007- 6410 Jan, [facility] [id number] [place] [address] 54971- 2634 Jan, [facility] [id number] [place] [address] [id number] Jan, [facility] [id number] [place] [address] 41473- 5108 Jan, [facility] [place] [facility] [address] [id number] [place] [address]- [address]800 Jan, [facility] [address] [id number] [place] [id number] Jan, [facility] [place] [facility] [address] [facility] [id number] [place] [id number] 4381 Jan, [facility] [place] [facility] [address] [facility] [id number] [place] [address]- 4081 Jan, [facility] [address] [id number] [place] [id number] Dec, [facility] [place] [facility] [address] [facility] [id number] [place] [address]- 0167 Dec, [facility] [address] [facility] [id number] [place] [id number] Dec, [facility] [place] [facility] [address] [facility] [id number] [address]- [address] Dec, [facility] [address] [facility] [id number] [place] [id number] Dec, [facility] [place] [facility] [address] [facility] [id number], [place] [address]- 4521 Dec, [facility] [address] [facility] [id number] [place] [id number] Dec, [facility] [place] [facility] [address] [facility] [id number], [place] [address] 3[address] Nov, [facility] [address] [id number] [place] [id number] Nov, [facility] [place] [facility] [address] [facility] [id number] [place] [address]- 4406 October, [facility] [address] [id number] [place] [id number] October, [facility] [address] [id number] [place] [id number] Aug, [facility] [address] [id number] [place] [id number] Aug, [facility] [address] [id number] [place] [id number] Aug, [facility] [address] [id number] [place] [phone] Aug, [facility] [address] [id number] [place] [id number] Aug, [facility] [address] [id number] [place] [id number] Jun, [facility] [address] [id number] [place] [id number] Jun, [facility] [address] [id number] [place] [id number] Apr, [facility] [address] [place] [address] 21581- 0624 Apr, [facility] [address] [id number] [place] [id number] Mar, [facility] [address] [id number], [place] [address] 7596 Mar, [facility] [address] [id number] [place] [id number] Feb, [facility] [address] [id number] [place] [id number] Jan, [facility] [address] [id number] [place] [id number] October, [facility] [address]00565[place] [address] 40[address] October, [facility] [address] [id number] [place] [id number] Jul, [facility] [address] [id number] [place] [id number] Jun, [facility] [address]00565[place], [place] [address] 3197 Mar, [facility] [place] [facility] [address]00565[place], [place] [address] 1756 May, [facility] [address] [id number], [place] [address] 07 May, 2010 [facility] [address]005[place], [place] [address]- 4858 May, [facility] [address]00565[place], [place] [address]- 6885 Apr, [facility] [address], [place] [address]- 2421 Apr, [facility] [id number] [place] [address] 746622- 7016 Apr, [facility] [id number] [place] [address] 215817- 8172 Jan, [facility] [id number] [place] [address] 99250- 8691 October, [facility] [id number] [place] [address] 06721- 5113 Jul, [facility] [address] [place] [address] 47449- 3455 Apr, [facility] [address] [place] [address] 52389- 7872 Apr, [facility] [address]65[place], [place] [address]- 2151 Jan, [facility] [address]65[address], [place] [address]- 0631 Aug, IMMUNIZATIONS No Known Immunizations SOCIAL HISTORY Never Assessed REASON FOR VISIT Cough started about 4 months ago Cecelia SILVERMAN PLAN OF CARE Activity Details Follow Up 2 Weeks Reason:bronchitis VITAL SIGNS Height 71 in 2017-12-03 Weight 237 lbs 2017-12-03 Temperature 98.1 degrees Fahrenheit 2017-12-03 Heart Rate 78 bpm 2017-12-03 Respiratory Rate 18 2017-12-03 Oximetry 96 % 2017-12-03 BMI 33.05 kg/m2 2017-12-03 Blood pressure systolic 128 mmHg 2017-12-03 Blood pressure diastolic 72 mmHg 2017-12-03 MEDICATIONS Medication Instructions Dosage Frequency Start Date End Date Duration Status Benzonatate 100 mg Orally Three times a day 1 capsule as needed 8h Nov, Active Albuterol Sulfate HFA 108 (90 Base) mcg/act Inhalation 4 times a day 2 puffs as needed 6h Nov, Active Medrol (Toby) 4 MG as directed Nov, Active RESULTS Name Result Date Reference Range Chest X-ray PA and Lateral 2017-12-16 PROCEDURES Procedure Date Ordered Result Body Site [facility] VISIT ESTABLISHED PATIENT December 03, 2017 INSTRUCTIONS MEDICATIONS ADMINISTERED No Known Medications [...]
--- OUTSIDE RECORDS SUMMARY | 2018-10-01 08:57 | XMS REPORT ---
Author Author WHITNEY FAJARDO Organization [employer] Address Unknown Phone Unavailable Care Team Providers Care Bake Room Worker Name Role Phone WHITNEY FAJARDO CP Unavailable Allergies No Known Allergies Problems Problem Type Condition Code Onset Dates Condition Status Problem Bariatric surgery status V45.86 Active Problem Abdominal pain, left lower quadrant 789.04 Active Problem Chest pain, unspecified 786.50 Active Problem Diabetes mellitus type 2 in nonobese E11.9 Active Problem Dysuria 788.1 Active Problem Acute pain of right knee M25.561 Active Problem Urinary tract infection, site not specified 599.0 Active Problem Hematuria, unspecified 599.70 Active Problem Pain in joint, lower leg 719.46 Active Problem Diabetes mellitus without mention of complication, type II or unspecified type, not stated as uncontrolled 250.00 Active Assessment Acute pain of right knee M25.561 Active Problem Sprain and strain of unspecified site of hip and thigh 843.9 Active Problem Unspecified prostatitis 601.9 Active Medications No Known Medications Procedures Procedure Coding System Code Date X-RAY EXAM OF KNEE, 3 CPT-4 01289 Jan 24, 2016 Results No Known Results Summary Purpose [employer] Submission
--- OUTSIDE RECORDS SUMMARY | 2018-10-01 08:57 | XMS REPORT ---
Author Author RIVERA NOBLE [facility] Address [address] [place] [address] Care Team Providers Care Table Keeper Name Role Phone GUTIERREZ RIVERA MARTINI Unavailable PROBLEMS Type Condition ICD9-CM Code KIO36-FG Code Onset Dates Condition Status SNOMED Code Problem Unspecified prostatitis 601.9 Active 9853802 Problem Right hand pain M79.641 Active 03374468 Problem Renal calculi N20.0 Active 31351257 Problem Diabetes mellitus type 2 in nonobese E11.9 Active 868833471 Problem Acute pain of right knee M25.561 Active 67809176 Problem Arthritis of right knee M19.90 Active 890138810 Problem Essential hypertension I10 Active 68707394 ALLERGIES Substance Reaction Event Type Date Status Glipizide 2.5 Mg Tablet Extended Release 24hr Unknown Non Drug Allergy Dec, Active ENCOUNTERS Encounter Location Date Diagnosis [address] [id number] May, Essential hypertension I10 and Arthritis of right knee M19.[address] [id number] Jan, Essential hypertension I10 ; Diabetes mellitus type 2 in nonobese E11.9 and Screening for prostate cancer Z12.[address] [id number] Dec, Vertigo R42 and Essential hypertension I10 [address] [id number] October, Acute cystitis with hematuria N30.01 and History of kidney stones Z87.442 [id number] [place] [address] [id number] Jul, Essential hypertension I10 [address] [id number] Jun, Right hand pain M79.641 and Essential hypertension I10 [place] [address] [facility] [id number] [place] [id number] Jun, Right hand pain M79.641 [facility] [id number] [place] [address] [id number] Apr, Arthritis of right knee M19.90 ; Right hand pain M79.641 ; Essential hypertension I10 and Diabetes mellitus type 2 in nonobese E11.9 [facility] [id number] [place] [address] [id number] Mar, Essential hypertension I10 and Renal calculi N20.0 [facility] [id number] [place] [address] [id number] Feb, Essential hypertension I10 ; Arthritis of right knee M19.90 ; Insect bite , initial encounter W57.XXXA and Boil of lower extremity L02.429 [facility] [id number] [place] [address] [id number] Feb, [facility] [id number] [place] [address] [id number] Jan, Arthritis of right knee M19.90 and Essential hypertension I10 [facility] [id number] [place] [address] [id number] Jan, Acute pain of right knee M25.561 [facility] [address] [facility] [address] [id number] [place] [id number] Jan, Acute pain of right knee M25.561 [facility] [id number] [place] [address] [id number] Dec, Acute pain of right knee M25.561 and Diabetes mellitus type 2 in nonobese E11.9 [facility] [id number] [place] [address] 21578- 4922 Sep, [facility] [address] [place] [address] 03688- 0364 Sep, [facility] [id number] [place] [address] [id number] May, [facility] [place] [facility] [address] [id number] [place] [address]- 2351 May, [facility] [place] [facility] [address] [id number] [place] [address]- 0314 Jan, [facility] [place] [facility] [address] [id number] [place] [address]- 3633 Jan, [facility] [place] [facility] [address] [id number] [place] [address]- 1434 Jan, [facility] [address] [id number] [place] [id number] Jan, [facility] [place] [facility] [address] [id number] [place] [address]- 1549 Jan, [facility] [place] [facility] [address] [id number] [place] [address]- 4409 Jan, [facility] [address] [id number], [place] [id number] Jan, [facility] [place] [facility] [address] [id number] [place] [address]- 2367 Jan, [facility] [place] [facility] [address] [facility] [id number] [place] [address]- 8604 Jan, [facility] [address] [id number], [place] [id number] Dec, [facility] [place] [facility] [address] [id number], [place] [address]- 7675 Dec, [facility] [address] [id number], [place] [id number] Dec, [facility] [place] [facility] [address] [id number] [place] [address]- 1685 Dec, [facility] [address] [id number], [place] [id number] Dec, [facility] [place] [facility] [address] [id number] [place] [address]- 8447 Dec, [facility] [address] [id number] [place] [id number] Dec, [facility] [address] [id number] [place] [address]- 2166 Nov, [facility] [address] [id number] [place] [id number] Nov, [facility] [address] [facility] [id number][place] [address]- 4950 October, [facility] [address] [id number] [place] [id number] October, [facility] [address] [id number] [place] [id number] Aug, [facility] [address] [id number] [place] [id number] Aug, [facility] [address] [id number] [place] [id number] Aug, [facility] [address] [id number] [place] [id number] Aug, [facility] [address] [id number] [place] [id number] Aug, [facility] [address] [id number] [place] [id number] Jun, [facility] [address] [id number] [place] [id number] Jun, [facility] [address] [id number] [place] [id number] Apr, [facility] [address] [facility] [id number], [place] [address]- 8858 Apr, [facility] [address] [id number] [place] [id number] Mar, [facility] [place] [facility] [address] [facility] [id number][place] [address]- 7634 Mar, [facility] [address] [id number] [place] [id number] Feb, [facility] [address] [id number] [place] [id number] Jan, [facility] [address] [id number] [place] [id number] October, [facility] [address] [id number], [place] [address]- 2546 October, [facility] [address] [id number] [place] [id number] Jul, [facility] [address] [facility] [id number] [place] [id number] Jun, [facility] [place] [facility] [address] [id number], [place] [address]- 7330 Mar, [facility] [place] [facility] [address] [id number] [place] [address]- 4399 May, [facility] [place] [facility] [address] [id number] [place] [address]- 4459 May, [facility] [place] [facility] [address] [address]- 2832 May, [facility] [place] [facility] [address] [id number] [place] [address]- 2034 Apr, [facility] [place] [facility] [address] [id number], [place] [address]- 2065 Apr, [facility] [place] [facility] [address] [id number] [place] [address]- 9712 Apr, [facility] [place] [facility] [address] [id number], [place] [address]- 1072 Jan, [facility] [place] [facility] [address] [id number], [place] [address]- 4046 October, [facility] [place] [facility] [address] [id number] [place] [address]- 6446 Jul, [facility] [place] [facility] [address] [facility] [id number], [place] [address]- 0910 Apr, [facility] [place] [facility] [address] [facility] [id number] [place] [address]- 3100 Apr, [facility] [place] [facility] [address] [facility] [id number] [place] [address]- [address] Jan, [facility] [address] [facility] [id number] [place] [address]- 4657 Aug, IMMUNIZATIONS No Known Immunizations SOCIAL HISTORY Never Assessed REASON FOR VISIT Dizziness started 4-5 weeks ago. Pt started back taking 40mg of lisinopril for BP Cecelia SILVERMAN PLAN OF CARE Activity Details Follow Up 3 Months Reason: VITAL SIGNS Height 71 in 2017-01-04 Weight 226.1 lbs 2017-01-04 Heart Rate 68 bpm 2017-01-04 Respiratory Rate 16 2017-01-04 BMI 31.53 kg/m2 2017-01-04 Blood pressure systolic 118 mmHg 2017-01-04 Blood pressure diastolic 72 mmHg 2017-01-04 MEDICATIONS Medication Instructions Dosage Frequency Start Date End Date Duration Status Lisinopril 20 mg Orally Once a day 1 tablet 24h Dec, 30 day(s) Active Lisinopril 40 mg Orally Once a day 1 tablet 24h 0 days Active RESULTS No Results PROCEDURES Procedure Date Ordered Result Body Site [facility] VISIT ESTABLISHED PATIENT January 04, 2017 INSTRUCTIONS MEDICATIONS ADMINISTERED No Known Medications MEDICAL (GENERAL) HISTORY Type Description Date Medical History hypertension Medical History sciatica Medical History back pain Medical History Diabetes mellitus without mention of complication, type II or unspecified type, not stated as uncontrolled Medical History Bariatric surgery status Surgical History gastric bypass Surgical History right knee arthroscopy Surgical History hardware left hip/pelvis Hospitalization History surgeries
--- OUTSIDE RECORDS SUMMARY | 2018-10-01 08:57 | XMS REPORT ---
Author Author MARCOS ÁLVAREZ Organization [facility] Address [address] [place] [address] Care Team Providers Care Approver Name Role Phone MARCOS ÁLVAREZ Unavailable PROBLEMS Type Condition ICD9-CM Code [id number] Code Onset Dates Condition Status SNOMED Code Problem Acute pain of right knee M25.561 Active 65602446 Problem Unspecified prostatitis 601.9 Active 3631458 Problem Suspected chronic obstructive pulmonary disease based on initial evaluation J44.9 Active 90757978 Problem Right hand pain M79.641 Active 97129773 Problem Essential hypertension I10 Active 21552727 Problem Diabetes mellitus type 2 in nonobese E11.9 Active 629525147 Problem Renal calculi N20.0 Active 25136202 Problem Arthritis of right knee M19.90 Active 741201639 ALLERGIES Substance Reaction Event Type Date Status Glipizide 2.5 Mg Tablet Extended Release 24hr Unknown Non Drug Allergy October, Active ENCOUNTERS Encounter Location Date Diagnosis [facility] [id number] [place] [address] [id number] Feb, [facility] [id number] [place] [address] [id number] Jan, Renal calculi N20.0 [facility] [id number] [place] [address] [id number] Dec, Hematuria, unspecified type R31.9 ; Renal calculi N20.0 and Angular cheilitis K13.0 [facility] [address] [place] [id number] [place] [phone] Nov, Dental caries K02.9 [facility] [id number] [place] [address] [id number] Nov, Chronic cough R05 and Suspected chronic obstructive pulmonary disease based on initial evaluation J44.9 [facility] [address] [place] [id number] Nov, Cough R05 [facility] [id number] [phone] Nov, Bronchitis J40 [facility] [id number] [address] October, Encounter for dental examination Z01.20 [facility] [id number] [place] [address] [id number] May, Essential hypertension I10 and Arthritis of right knee M19.90 [facility] [id number] [place] [address] [id number] Jan, Essential hypertension I10 ; Diabetes mellitus type 2 in nonobese E11.9 and Screening for prostate cancer Z12.5 [facility] [id number] [place] [address] [id number] Dec, 2016 Vertigo R42 and Essential hypertension I10 [facility] [id number] [place] [address] [id number] October, Acute cystitis with hematuria N30.01 and History of kidney stones Z87.442 [facility] [id number] [place] [address] [id number] Jul, Essential hypertension I10 [facility] [id number] [place] [address] [id number] Jun, Right hand pain M79.641 and Essential hypertension I10 [address] [id number] [id number] Jun, Right hand pain M79.641 [facility] [id number] [place] [address] [id number] Apr, Arthritis of right knee M19.90 ; Right hand pain M79.641 ; Essential hypertension I10 and Diabetes mellitus type 2 in nonobese E11.9 [facility] [id number] [place] [address] [id number] Mar, Essential hypertension I10 and Renal calculi N20.0 [facility] [id number] [place] [address] [id number] Feb, Essential hypertension I10 ; Arthritis of right knee M19.90 ; Insect bite , initial encounter W57.XXXA and Boil of lower extremity L02.429 [facility] [id number] [place] [address] [id number] Feb, [facility] [place] [id number] [place] [address] [id number] Jan, Arthritis of right knee M19.90 and Essential hypertension I10 [facility] [place] [id number] [place] [address] [id number] Jan, Acute pain of right knee M25.561 [facility] [place] [id number] [facility] [address] [id number] [id number] Jan, Acute pain of right knee M25.561 [facility] [place] [id number] [place] [address] [id number] Dec, Acute pain of right knee M25.561 and Diabetes mellitus type 2 in nonobese E11.9 [facility] [id number] [place] [address] Sep, [facility] [id number] [place] [address] Sep, [facility] [id number] [place] [address] [id number] May, [facility] [id number] [place] [address] May, [facility] [id number] [place] [address]67 Jan, [facility] [id number] [place] [address]337 Jan, [facility] [id number] [place] [address] [phone]- 6102 Jan, [facility] [id number] [place] [address] [id number] Jan, [facility] [id number] [place] [address] [phone] Jan, [facility] [place] [facility] [address] [id number] [place] [address] Jan, [facility] [address] [id number] [place] [phone] Jan, [facility] [place] [facility] [address] [id number] [place] [address] Jan, [facility] [place] [facility] [address] [facility] [id number] [place] [address] Jan, [facility] [address] [id number] [place] [id number] Dec, [facility] [place] [facility] [address] [id number] [place] [address] Dec, [facility] [address] [id number] [place] [id number] Dec, [facility] [place] [facility] [address] [facility] [id number] [place] [address] Dec, [facility] [address] [id number] [place] [id number] Dec, [facility] [place] [facility] [address] [facility] [id number] [place] [address] Dec, [facility] [address] [id number] [place] [id number] Dec, [facility] [place] [facility] [address] [facility] [id number] [address] Nov, [facility] [address] [id number] [place] [phone] Nov, [facility] [place] [facility] [address] [id number] [place] [address] October, [facility] [address] [id number] [place] [id number] October, [facility] [address] [id number] [place] [id number] Aug, [facility] [address] [id number] [place] [phone] Aug, [facility] [address] [id number] [place] [phone] Aug, [facility] [address] [id number] [place] [phone] Aug, [facility] [address] [id number] [place] [id number] Aug, [facility] [address] [id number] [place] [id number] Jun, [facility] [address] [id number] [place] [phone] Jun, [facility] [address] [id number] [place] [id number] Apr, [facility] [address] [facility] [id number] [address] Apr, [facility] [address] [id number] [place] [id number] Mar, [facility] [address] [address] Mar, [facility] [address] [id number] [place] [id number] Feb, [facility] [address] [id number] [place] [id number] Jan, [facility] [address] [id number] [place] [phone] October, [facility] [address] [address] October, [facility] [address] [id number] [place] [phone] Jul, [facility] [address] [id number] [place] [id number] Jun, [facility] [address] [address] Mar, [facility] [place] [facility] [address] [address] May, [facility] [address] [id number] [address] May, [facility] [address] [address] May, [facility] [address] [address] Apr, [facility] [address] [address] Apr, [facility] [address] [address] Apr, [facility] [address] [address] Jan, [facility] [address] [address] October, [facility] [id number] [address] Jul, [facility] [address] Apr, [facility] [address] [address] 1006 Apr, [facility] [address] [address] Jan, [facility] [address] [address] Aug, IMMUNIZATIONS No Known Immunizations SOCIAL HISTORY Never Assessed REASON FOR VISIT GERTRUDE PLAN OF CARE Activity Details Follow Up TE 1 hr Reason: VITAL SIGNS Height 71 in 2017-10-23 Blood pressure systolic 128 mmHg 2017-10-23 Blood pressure diastolic 86 mmHg 2017-10-23 MEDICATIONS Unknown Medications RESULTS No Results PROCEDURES Procedure Date Ordered Result Body Site LTD ORAL EVALUATION - PROBLEM FOCUS October 23, 2017 INTRAORL-PERIAPICAL 1 FILM [id number] October 23, 2017 INTRAORL-PERIAPICAL 1 FILM [id number] October 23, 2017 INTRAORL-PERIAPICAL 1 FILM 59420 October 23, 2017 INSTRUCTIONS MEDICATIONS ADMINISTERED No Known Medications [...]
--- OUTSIDE RECORDS SUMMARY | 2018-10-01 08:57 | XMS REPORT ---
Author Author [place] FAJARDO [facility] Address [address] [place] [address] Care Team Providers Care Conservation Coordinator Name Role Phone [place] FAJARDO Unavailable PROBLEMS Type Condition ICD9-CM Code XJY11-ZV Code Onset Dates Condition Status SNOMED Code Problem Urinary tract infection, site not specified 599.0 Active 14798169 Problem Pain in joint, lower leg 719.46 Active 186054265 Problem Diabetes mellitus without mention of complication, type II or unspecified type, not stated as uncontrolled 250.00 Active 307598240 Problem Renal calculi N20.0 Active 46007912 Problem Arthritis of right knee M19.90 Active 369817789 Problem Diabetes mellitus type 2 in nonobese E11.9 Active 240606800 Problem Dysuria 788.1 Active 15587376 Problem Essential hypertension I10 Active 43048327 Problem Acute pain of right knee M25.561 Active 71632683 Assessment Insect bite, initial encounter W57.XXXA Feb, Active 318665965 Assessment Essential hypertension I10 Feb, Active 45942660 Assessment Boil of lower extremity L02.429 Feb, Active 894076515 Problem Bariatric surgery status V45.86 Active 936691778 Problem Chest pain, unspecified 786.50 Active 47569609 Problem Sprain and strain of unspecified site of hip and thigh 843.9 Active 90181174 Problem Abdominal pain, left lower quadrant 789.04 Active 953891011 Problem Unspecified prostatitis 601.9 Active 0020115 Problem Hematuria, unspecified 599.70 Active 87371217 ALLERGIES Substance Reaction Event Type Date Status Glipizide 2.5 Mg Tablet Extended Release 24hr Unknown Non Drug Allergy Feb, Active SOCIAL HISTORY No smoking Hx information available PLAN OF CARE VITAL SIGNS Height 71 in 2016-03-08 Weight 224.6 lbs 2016-03-08 Heart Rate 68 bpm 2016-03-08 Respiratory Rate 16 2016-03-08 BMI 31.32 kg/m2 2016-03-08 Blood pressure systolic 200 mmHg 2016-03-08 Blood pressure diastolic 94 mmHg 2016-03-08 MEDICATIONS Medication Instructions Dosage Frequency Start Date End Date Duration Status Bactrim DS 800-160 MG Orally 2 times a day 1 tablet 12h Feb, Feb, 10 day(s) Active Ibuprofen 800 MG Orally Three times a day 1 tablet 8h Dec, Active Knee Brace/Hinged Bars Medium ... as directed Feb, Active Lisinopril 10 mg Orally Once a day 1 tablet 24h Feb, Active RESULTS No Results PROCEDURES Procedure Date Ordered Related Diagnosis Body Site [facility] VISIT ESTABLISHED PATIENT Mar 08, 2016 Office Visit, Est Pt., Level 3 Mar 08, 2016 IMMUNIZATIONS No Known Immunizations
--- OUTSIDE RECORDS SUMMARY | 2018-10-01 08:57 | XMS REPORT ---
Author Author [place] FAJARDO [facility] Address [address] [place] [address] Care Team Providers Care Allopathic Doctor Name Role Phone [place] FAJARDO Unavailable PROBLEMS Type Condition ICD9-CM Code WAV30-TW Code Onset Dates Condition Status SNOMED Code Problem Diabetes mellitus without mention of complication, type II or unspecified type, not stated as uncontrolled 250.00 Active 100509091 Problem Dysuria 788.1 Active 13944005 Problem Pain in joint, lower leg 719.46 Active 295872821 Problem Right hand pain M79.641 Active 74312764 Problem Renal calculi N20.0 Active 74312677 Problem Acute pain of right knee M25.561 Active 29865473 Problem Diabetes mellitus type 2 in nonobese E11.9 Active 569597835 Problem Arthritis of right knee M19.90 Active 327446337 Problem Essential hypertension I10 Active 32967676 Assessment Arthritis of right knee M19.90 Apr, Active 5430763243399424 Problem Sprain and strain of unspecified site of hip and thigh 843.9 Active 03161514 Problem Chest pain, unspecified 786.50 Active 19057453 Problem Abdominal pain, left lower quadrant 789.04 Active 254560316 Problem Unspecified prostatitis 601.9 Active 3634229 Problem Hematuria, unspecified 599.70 Active 09134169 Problem Bariatric surgery status V45.86 Active 845457695 Problem Urinary tract infection, site not specified 599.0 Active 39909431 ALLERGIES Substance Reaction Event Type Date Status Glipizide 2.5 Mg Tablet Extended Release 24hr Unknown Non Drug Allergy Apr, Active SOCIAL HISTORY No smoking Hx information available PLAN OF CARE VITAL SIGNS Height 71 in 2016-05-21 Weight 232 lbs 2016-05-21 Heart Rate 62 bpm 2016-05-21 Respiratory Rate 20 2016-05-21 BMI 32.35 kg/m2 2016-05-21 Blood pressure systolic 170 mmHg 2016-05-21 Blood pressure diastolic 82 mmHg 2016-05-21 MEDICATIONS Medication Instructions Dosage Frequency Start Date End Date Duration Status Lisinopril 40 MG Orally Once a day 1 tablet 24h Active Ibuprofen 800 MG Orally Three times a day 1 tablet 8h Dec, Active Knee Brace/Hinged Bars Medium ... as directed Feb, Active RESULTS No Results PROCEDURES Procedure Date Ordered Related Diagnosis Body Site [facility] VISIT ESTABLISHED PATIENT May 21, 2016 Office Visit, Est Pt., Level 3 May 21, 2016 ARTHROCENTESIS SEE ALSO CODE 79095 May 21, 2016 IMMUNIZATIONS No Known Immunizations
--- OUTSIDE RECORDS SUMMARY | 2018-10-01 08:57 | XMS REPORT ---
Author Author [place] FAJARDO [facility] Address [address] [place] [address] Care Team Providers Care Sand Bobber Name Role Phone [place] FAJARDO Unavailable PROBLEMS Type Condition ICD9-CM Code WXW08-IQ Code Onset Dates Condition Status SNOMED Code Problem Unspecified prostatitis 601.9 Active 9595514 Problem Right hand pain M79.641 Active 04257370 Problem Renal calculi N20.0 Active 76954660 Problem Acute pain of right knee M25.561 Active 70676900 Problem Diabetes mellitus type 2 in nonobese E11.9 Active 628537438 Problem Arthritis of right knee M19.90 Active 288212947 Problem Essential hypertension I10 Active 15198432 ALLERGIES No Known Allergies SOCIAL HISTORY No smoking Hx information available PLAN OF CARE VITAL SIGNS MEDICATIONS No Known Medications RESULTS Name Result Date Reference Range Xray : Hand, Right 2 views (IN HOUSE) 2016-06-26 PROCEDURES Procedure Date Ordered Related Diagnosis Body Site X-RAY EXAM OF HAND Jun 26, 2016 IMMUNIZATIONS No Known Immunizations
--- OUTSIDE RECORDS SUMMARY | 2018-10-01 08:57 | XMS REPORT ---
Author Author [place] FAJARDO [facility] [employer] Address Unknown Phone Unavailable Care Team Providers Care Novelty Chain Maker Name Role Phone [place] FAJARDO CP Unavailable Allergies, Adverse Reactions, Alerts Substance Reaction Event Type Glipizide 2.5 Mg Tablet Extended Release 24hr Info Not Available Non Drug Allergy Problems Problem Type Condition Code Onset Dates Condition Status Problem Hematuria, unspecified 599.70 Active Problem Diabetes mellitus without mention of complication, type II or unspecified type, not stated as uncontrolled 250.00 Active Problem Urinary tract infection, site not specified 599.0 Active Problem Arthritis of right knee M19.90 Active Problem Essential hypertension I10 Active Problem Renal calculi N20.0 Active Problem Dysuria 788.1 Active Problem Pain in joint, lower leg 719.46 Active Problem Acute pain of right knee M25.561 Active Problem Diabetes mellitus type 2 in nonobese E11.9 Active Assessment Renal calculi N20.0 Active Problem Unspecified prostatitis 601.9 Active Problem Bariatric surgery status V45.86 Active Assessment Essential hypertension I10 Active Problem Chest pain, unspecified 786.50 Active Problem Sprain and strain of unspecified site of hip and thigh 843.9 Active Problem Abdominal pain, left lower quadrant 789.04 Active Medications Medication Code System Code Instructions Start Date End [place] [address]-40 20 MG Orally Once a day Mar 08, 2016 1 tablet Knee Brace/Hinged Bars Medium NDC 0 ... Mar 08, 2016 [place] [address]-42 800 MG Orally Three times a day January 18, 2016 1 tablet Procedures Procedure Coding System Code Date Office Visit, Est Pt., Level 3 CPT-4 55724 Mar 26, 2016 [facility] VISIT ESTABLISHED PATIENT CPT-4 G0467 Mar 26, 2016 Vital Signs Date/Time: Mar 26, 2016 Cardiac Monitoring Heart Rate 80 bpm Weight 227.4 lbs Height 71 in BMI 31.71 Index Blood Pressure Diastolic 100 mmHg Blood Pressure Systolic 184 mmHg Results Name Result Date Reference Range Unit Abnormality Flag PDF Report ----PDF Report1 [facility] [id number] URINE CALCULI ----Dried Blood 03 20160326 % ----Ammonium acid urate 05 20160326 % ----Nidus No Nidus visualized 20160326 ----Calcium phosphate 15 20160326 % ----Uric acid 40 20160326 % ----Weight 1189.0 20160326 mg ----Ca oxalate monohydr. 37 20160326 % ----Color Brown 20160326 Summary Purpose [employer]Clinical[employer] Submission
--- OUTSIDE RECORDS SUMMARY | 2018-10-01 08:57 | XMS REPORT ---
Author Author JODI PAIZ Organization [facility] Address [address] [place] [address] Care Team Providers Care Skip Pitman Name Role Phone JODI PAIZ Unavailable PROBLEMS Type Condition ICD9-CM Code KYR50-JA Code Onset Dates Condition Status SNOMED Code Problem Acute pain of right knee M25.561 Active 78639375 Problem Unspecified prostatitis 601.9 Active 0404454 Problem Suspected chronic obstructive pulmonary disease based on initial evaluation J44.9 Active 79228931 Problem Right hand pain M79.641 Active 09754063 Problem Essential hypertension I10 Active 17907821 Problem Diabetes mellitus type 2 in nonobese E11.9 Active 119221851 Problem Renal calculi N20.0 Active 70988070 Problem Arthritis of right knee M19.90 Active 727793916 ALLERGIES Substance Reaction Event Type Date Status Glipizide 2.5 Mg Tablet Extended Release 24hr Unknown Non Drug Allergy Nov, Active ENCOUNTERS Encounter Location Date Diagnosis [facility] [id number] [place] [id number] Feb, [facility] [id number] [place] [address] [id number] Jan, Renal calculi N20.0 [facility] [id number] [place] [address] [id number] Dec, Hematuria, unspecified type R31.9 ; Renal calculi N20.0 and Angular cheilitis K13.0 [facility] [id number] [address] Nov, Dental caries K02.9 [facility] [id number] [phone] Nov, Chronic cough R05 and Suspected chronic obstructive pulmonary disease based on initial evaluation J44.9 [facility] [id number], [place] [phone] Nov, Cough R05 [facility] [id number] [place] [address] [id number] Nov, Bronchitis J40 [facility] [address] [id number] [address] October, Encounter for dental examination Z01.20 [facility] [id number] [place] [address] [id number] May, Essential hypertension I10 and Arthritis of right knee M19.90 [facility] [id number] [place] [address] [id number] Jan, Essential hypertension I10 ; Diabetes mellitus type 2 in nonobese E11.9 and Screening for prostate cancer Z12.5 [facility] [address] [place] [address] [id number] Dec, Vertigo R42 and Essential hypertension I10 [facility] [id number] [place] [address] [id number] October, Acute cystitis with hematuria N30.01 and History of kidney stones Z87.442 [facility] [id number] [place] [address] [id number] Jul, Essential hypertension I10 [facility] [id number] [place] [address] [id number] Jun, Right hand pain M79.641 and Essential hypertension I10 [address] [id number] [phone] Jun, Right hand pain M79.641 [facility] [id number] [id number] Apr, Arthritis of right knee M19.90 ; Right hand pain M79.641 ; Essential hypertension I10 and Diabetes mellitus type 2 in nonobese E11.9 [facility] [address] [id number] Mar, Essential hypertension I10 and Renal calculi N20.0 [facility] [id number] [place] [address] [id number] Feb, Essential hypertension I10 ; Arthritis of right knee M19.90 ; Insect bite , initial encounter W57.XXXA and Boil of lower extremity L02.429 [facility] [id number] [place] [address] [id number] Feb, [facility] [id number] [place] [address] [id number] Jan, Arthritis of right knee M19.90 and Essential hypertension I10 [facility] [id number] [place] [address] [id number] Jan, Acute pain of right knee M25.561 [address] [id number] [phone] Jan, Acute pain of right knee M25.561 [facility] [place] [id number] [place] [address] [id number] Dec, Acute pain of right knee M25.561 and Diabetes mellitus type 2 in nonobese E11.9 [facility] [id number] [place] [phone] Sep, [facility] [id number] [place] [phone] Sep, [facility] [id number] [place] [address] [id number] May, [facility] [id number] [place] [address] May, [facility] [id number] [place] [address] [phone] Jan, [facility] [id number] [place] [address] Jan, [facility] [id number] [place] [address] [phone] Jan, [facility] [id number] [place] [address] [id number] Jan, [facility] [id number] [place] [address] Jan, [facility] [place] [facility] [address] [id number] [place] [address] Jan, [facility] [place] [address] [id number] [place] [phone] Jan, [facility] [place] [facility] [address] [facility] [id number] [place] [address] Jan, [facility] [place] [facility] [address] [facility] [id number] [place] [address] Jan, [facility] [address] [id number] [place] [phone] Dec, [facility] [place] [facility] [address] [facility] [id number] [place] [address] Dec, [facility] [address] [id number] [place] [phone] Dec, [facility] [place] [facility] [address] [facility] [id number] [place] [address] Dec, [facility] [address] [id number] [place] [phone] Dec, [facility] [place] [facility] [address] [facility] [id number] [place] [address] Dec, [facility] [address] [id number] [place] [phone] Dec, [facility] [place] [facility] [address] [facility] [id number] [place] [address] Nov, [facility] [address] [id number] [place] [phone] Nov, [facility] [place] [facility] [address] [id number] [place] [address] October, [facility] [address] [id number] [place] [phone] October, [facility] [address] [id number] [place] [phone] Aug, [facility] [address] [id number] [place] [phone] Aug, [facility] [address] [id number] [place] [phone] Aug, [facility] [address] [id number] [place] [phone] Aug, [facility] [address] [id number] [place] [phone] Aug, [facility] [address] [id number] [place] [phone] Jun, [facility] [address] [id number] [place] [phone] Jun, [facility] [address] [id number] [place] [phone] Apr, [facility] [address] [address] Apr, [facility] [address] [id number] [place] [phone] Mar, [facility] [address] [address] Mar, [facility] [address] [id number] [place] [phone] Feb, [facility] [address] [id number] [place] [phone] Jan, [facility] [address] [id number] [place] [phone] October, [facility] [address] [address] October, [facility] [address] [id number], [place] [phone] Jul, [facility] [address] [id number] [place] [phone] Jun, [facility] [address] [address] Mar, [facility] [address] [address] May, [facility] [address] [address] May, [facility] [address] [address] May, [facility] [address] [address] Apr, [facility] [id number] [place] [address]- [address] Apr, [facility] [address] [address] Apr, [facility] [id number] [place] [address] 89[address]- 2546 Jan, [facility] [address] [address] October, [facility] [address] [address] Jul, [facility] [address] [address] Apr, [facility] [address] [address]- [address] Apr, [facility] [address] [address] Jan, [facility] [address] [id number] [address] Aug, IMMUNIZATIONS Vaccine Route Administration Date Status SOLUMEDROL (UP TO 125 MG) IM Intramuscular December 09, 2017 Administered SOCIAL HISTORY Never Assessed REASON FOR VISIT Saw Anurag last Saturday for cough (states he has chronic bronchitis), started to get better, but when finished medication, got worse again. tonia Frost PLAN OF CARE Activity Details Follow Up if s/s not improving with PCP or in Clinic Reason: VITAL SIGNS Height 71 in 2017-12-09 Weight 234 lbs 2017-12-09 Temperature 99.4 degrees Fahrenheit 2017-12-09 Heart Rate 94 bpm 2017-12-09 Respiratory Rate 20 2017-12-09 BMI 32.63 kg/m2 2017-12-09 Blood pressure systolic 134 mmHg 2017-12-09 Blood pressure diastolic 80 mmHg 2017-12-09 MEDICATIONS Medication Instructions Dosage Frequency Start Date End Date Duration Status Azithromycin 250 MG Orally Once a day 2 tablets on the first day, then 1 tablet daily for 4 days 24h Nov, Nov, 5 day(s) Active Cheratussin AC 100-10 MG/5ML Orally every 4 hrs 5 ml 4h Nov, Nov, 05 days Active Albuterol Sulfate HFA 108 (90 Base) mcg/act Inhalation 4 times a day 2 puffs as needed 6h Nov, Active RESULTS No Results PROCEDURES Procedure Date Ordered Result Body Site SOLUMEDROL (UP TO 125 MG) December 09, 2017 THER/PROPH/DIAG INJ, SC/IM December 09, 2017 [facility] VISIT ESTABLISHED PATIENT December 09, 2017 INSTRUCTIONS MEDICATIONS ADMINISTERED No Known Medications [...]
--- OUTSIDE RECORDS SUMMARY | 2018-10-01 08:58 | XMS REPORT ---
Author Author WHITNEY FAJARDO [facility] Address [address] [place] [address] Care Team Providers Care Home Aid Name Role Phone WHITNEY FAJARDO Unavailable PROBLEMS Type Condition ICD9-CM Code SYW85-SI Code Onset Dates Condition Status SNOMED Code Problem Unspecified prostatitis 601.9 Active 5009500 Problem Right hand pain M79.641 Active 35414077 Problem Renal calculi N20.0 Active 22939436 Problem Diabetes mellitus type 2 in nonobese E11.9 Active 395454439 Problem Acute pain of right knee M25.561 Active 09680357 Problem Arthritis of right knee M19.90 Active 689764541 Problem Essential hypertension I10 Active 38091700 ALLERGIES Substance Reaction Event Type Date Status Glipizide 2.5 Mg Tablet Extended Release 24hr Unknown Non Drug Allergy Jun, Active SOCIAL HISTORY No smoking Hx information available PLAN OF CARE Activity Details Follow Up 3 Months Reason:htn VITAL SIGNS Height 71 in 2016-07-02 Weight 241.6 lbs 2016-07-02 Temperature 97.9 degrees Fahrenheit 2016-07-02 Heart Rate 82 bpm 2016-07-02 Respiratory Rate 16 2016-07-02 BMI 33.69 kg/m2 2016-07-02 Blood pressure systolic 132 mmHg 2016-07-02 Blood pressure diastolic 70 mmHg 2016-07-02 MEDICATIONS Medication Instructions Dosage Frequency Start Date End Date Duration Status Knee Brace/Hinged Bars Medium ... as directed Feb, Active Ibuprofen 800 MG Orally Three times a day 1 tablet 8h Dec, Active Albuterol Sulfate HFA 108 (90 Base) MCG/ACT Inhalation 4 times a day 2 puffs as needed 6h Jun, Active Lisinopril 40 MG Orally Once a day 1 tablet 24h Active RESULTS No Results PROCEDURES Procedure Date Ordered Related Diagnosis Body Site [facility] VISIT ESTABLISHED PATIENT Jul 02, 2016 Office Visit, Est Pt., Level 3 Jul 02, 2016 IMMUNIZATIONS No Known Immunizations
--- OUTSIDE RECORDS SUMMARY | 2018-10-01 08:58 | XMS REPORT ---
Author Author JODI PAIZ Organization [facility] Address [address] [place] [address] Care Team Providers Care Gas Controller Name Role Phone TALISHA SORIANO JODI Unavailable PROBLEMS Type Condition ICD9-CM Code [id number] Code Onset Dates Condition Status SNOMED Code Problem Unspecified prostatitis 601.9 Active 2947318 Problem Right hand pain M79.641 Active 96810332 Problem Renal calculi N20.0 Active 48185259 Problem Diabetes mellitus type 2 in nonobese E11.9 Active 320554720 Problem Acute pain of right knee M25.561 Active 78164386 Problem Arthritis of right knee M19.90 Active 396296440 Problem Essential hypertension I10 Active 35456195 ALLERGIES Substance Reaction Event Type Date Status Glipizide 2.5 Mg Tablet Extended Release 24hr Unknown Non Drug Allergy October, Active SOCIAL HISTORY Never Assessed PLAN OF CARE Activity Details Follow Up 2 - 3 Days, 1 Week Reason:if s/s not improving at Clinic or with PCP VITAL SIGNS Height 71 in 2016-11-02 Weight 234.0 lbs 2016-11-02 Temperature 97.9 degrees Fahrenheit 2016-11-02 Heart Rate 80 bpm 2016-11-02 Respiratory Rate 16 2016-11-02 BMI 32.63 kg/m2 2016-11-02 Blood pressure systolic 160 mmHg 2016-11-02 Blood pressure diastolic 80 mmHg 2016-11-02 MEDICATIONS Medication Instructions Dosage Frequency Start Date End Date Duration Status Knee Brace/Hinged Bars Medium ... as directed Feb, Active Ciprofloxacin HCl 500 mg Orally Twice a day 1 tablet 12h October, October, 10 day(s) Active RESULTS Name Result Date Reference Range UA LONG DIP (IN HOUSE) 2016-11-02 Lot # [id number] Exp date 06/2017 Clarity clear Color yellow Odor no GLU neg ELISABETH neg KET neg SG 1.020 BLO 3+ pH 6.5 Protein 2+ URO 1.0 NIT neg NEISHA trace Lot # Exp date CULTURE, URINE 2016-11-02 Urine Culture, Routine Final report Result 1 No growth PROCEDURES Procedure Date Ordered Result Body Site URINALYSIS, AUTO, W/O SCOPE November 02, 2016 LAB NOT BILLED BY [facility] November 02, 2016 [facility] VISIT ESTABLISHED PATIENT November 02, 2016 IMMUNIZATIONS No Known Immunizations MEDICAL (GENERAL) HISTORY Type Description Date Medical History hypertension Medical History sciatica Medical History back pain Medical History Diabetes mellitus without mention of complication, type II or unspecified type, not stated as uncontrolled Medical History Bariatric surgery status Surgical History gastric bypass Surgical History right knee arthroscopy Surgical History hardware left hip/pelvis Hospitalization History surgeries
--- OUTSIDE RECORDS SUMMARY | 2018-10-01 08:58 | XMS REPORT ---
Author Author WHITNEY FAJARDO Organization [employer] Address Unknown Phone Unavailable Care Team Providers Care Electroneurodiagnostic Technologist Name Role Phone WHITNEY FAJARDO CP Unavailable [...] Active Problem Unspecified prostatitis 601.9 Active Medications Medication Code System Code Instructions Start Date End Date Status Dosage Ibuprofen [facility] [address]-74 800 MG Orally Three times a day January 18, 2016 1 tablet Procedures Procedure Coding System Code Date Office Visit, Est Pt., Level 3 CPT-4 08281 Jan 25, 2016 [facility] VISIT ESTABLISHED PATIENT CPT-4 G0467 Jan 25, 2016 Vital Signs Date/Time: Jan 25, 2016 Cardiac Monitoring Heart Rate 72 bpm Weight 224.6 lbs Height 71 in BMI 31.32 Index Blood Pressure Diastolic 78 mmHg Blood Pressure Systolic 162 mmHg Results No Known Results Summary Purpose [employer] Submission
--- OUTSIDE RECORDS SUMMARY | 2018-10-01 08:58 | XMS REPORT | Continuity of Care Document ---
Author Author [facility] Organization [facility] Address Unknown Phone Unavailable Care Team Providers Care Licensed Customs Broker Name Role Phone WHITNEY FAJARDO CFNP PP Insurance Providers Payer Name Policy Number Subscriber Name Relationship s Medicare [id number] Herbert Scott 01 Self / Same As Patient Advance Directives Directive Response Recorded Date Advance Directives N 02/04/13 6:34am Health Care Power of Nurse Emergency N 02/04/13 6:34am Organ Donor Y 02/04/13 6:34am Problems No Known Problems or Medical conditions. Allergies, Adverse Reactions, Alerts Allergen Type Severity Reaction Last Updated No Known Drug Allergies Allergy Unknown 09/15/08 Medications Medication Dose Units Route Sig Qty Days Acetaminophen/Hydrocodone Bitart (Lorcet Plus 10/325 Mg) 1 - 2 Tab PO Q4H 28 Phenazopyridine HCl (Pyridium) 1 Each PO TID Ciprofloxacin (Cipro) 1 Tab PO BID Dutasteride/Tamsulosin Hcl (Tahmina 0.5-0.4 Mg Capsule) 1 Cap PO DAILY Pyridoxine HCl (Vitamin B-6) 200 Mg PO DAILY Vitamin E 200 Unit PO Fish Oil 1000 Mg PO TID Atorvastatin Calcium (Lipitor 40MG) 1 Each PO HS Carvedilol 1 Each PO BID Aspirin (Aspirin Ec 325 Mg) 325 Mg PO DAILY Metformin HCl (Metformin 500 Mg) 1 Each PO BID WITH MEALS Response Recorded Date/Time Status not known Unknown Results Test Date Result Interp. Ref. Range Alanine Aminotransferase (ALT/SGPT) September 15, 2008 6:56am 64 U/L N 30-65 Albumin September 15, 2008 6:56am 4.1 G/DL N 3.4-5.0 Alkaline Phosphatase September 15, 2008 6:56am 65 U/L N 50-136 Aspartate Amino Transf (AST/SGOT) September 15, 2008 6:56am 33 U/L N 15-37 BUN/Creatinine Ratio September 15, 2008 6:56am 14 - Basophils # (Auto) September 15, 2008 6:56am 0.0 10^3/uL N 0.0-0.1 Basophils (%) (Auto) September 15, 2008 6:56am 0 % N 0-10 Blood Urea Nitrogen September 15, 2008 6:56am 23 MG/DL H 7-18 Calcium Level September 15, 2008 6:56am 9.5 MG/DL N 8.5-10.1 Carbon Dioxide Level September 15, 2008 6:56am 27 MMOL/L N 21-32 Chloride Level September 15, 2008 6:56am 105 MMOL/L N 101-110 Creatinine September 15, 2008 6:56am 1.6 MG/ DL H 0.6-1.3 Eosinophils # (Auto) September 15, 2008 6:56am 0.3 10^3/uL N 0.0-0.3 Eosinophils (%) (Auto) September 15, 2008 6:56am 4 % N 0-10 Glucose Level September 15, 2008 6:56am 107 MG/DL N 70-126 Hematocrit September 15, 2008 6:56am 39 % L 40-54 Hemoglobin September 15, 2008 6:56am 12.9 G/ DL L 13.3-17.7 Lymphocytes # (Auto) September 15, 2008 6:56am 2.2 X 10^3 N 1.0-4.0 Lymphocytes (%) (Auto) September 15, 2008 6:56am 30 % N 12-44 Mean Corpuscular Hemoglobin September 15, 2008 6:56am 31 PG N 25-34 Mean Corpuscular Hemoglobin Concent September 15, 2008 6:56am 33 G/DL N 32-36 Mean Corpuscular Volume September 15, 2008 6:56am 94 FL N 80-99 Mean Platelet Volume September 15, 2008 6:56am 9.3 FL N 7.4-10.4 Monocytes # (Auto) September 15, 2008 6:56am 0.7 X 10^3 N 0.0-1.0 Monocytes (%) (Auto) September 15, 2008 6:56am 9 % N 0-12 Neutrophils # (Auto) September 15, 2008 6:56am 4.3 X 10^3 N 1.8-7.8 Neutrophils (%) (Auto) September 15, 2008 6:56am 57 % N 42-75 Number of Stones September 15, 2008 11:03am NUMEROUS - Platelet Count September 15, 2008 6:56am 376 10^3/uL N 130-400 Potassium Level September 15, 2008 6:56am 3.7 MMOL/L N 3.6-5.0 Red Blood Count September 15, 2008 6:56am 4.15 10^6/uL L 4.35-5.85 Red Cell Distribution Width September 15, 2008 6:56am 13.5 % N 10.0-14.5 Sodium Level September 15, 2008 6:56am 144 MMOL/L N 135-145 Stone Composition September 15, 2008 11:03am SEE FOOTNOTE % - Stone Size September 15, 2008 11:03am VARIOUS MM - Stone Weight September 15, 2008 11:03am 23 MG - Total Bilirubin September 15, 2008 6:56am 0.4 MG/DL N 0.0-1.0 Total Protein September 15, 2008 6:56am 8.4 G/DL H 6.4-8.2 White Blood Count September 15, 2008 6:56am 7.5 10^3/uL N 4.3-11.0 Glucometer June 28, 2010 9:57am 119 MG/DL H 70-110 Estimat Glomerular Filtration Rate September 15, 2008 6:56am 48 - Stone Description September 15, 2008 11:03am SEE FOOTNOTE - Procedures Procedure Code Date CYSTOURETERO W/STONE REMOVE 99625 KNEE ARTHROSCOPY/SURGERY 35151 06/28/10 MRSA Screen 01/29/13 Urine Culture 09/15/08
--- OUTSIDE RECORDS SUMMARY | 2018-10-01 08:58 | XMS REPORT ---
Author Author WHITNEY FAJARDO Organization [employer] Address Unknown Phone Unavailable Care Team Providers Care Manager Creative Name Role Phone WHITNEY FAJARDO CP Unavailable [...] not stated as uncontrolled 250.00 Active Assessment Diabetes mellitus type 2 in nonobese E11.9 Active Assessment Acute pain of right knee M25.561 Active Problem Sprain and strain of unspecified site of hip and thigh 843.9 Active Problem Unspecified prostatitis 601.9 Active Medications Medication Code System Code Instructions Start Date End Date Status Dosage Ibuprofen [facility] [address]-16 800 MG Orally Three times a day January 18, 2016 1 tablet Procedures Procedure Coding System Code Date Office Visit, Est Pt., Level 3 CPT-4 09103 January 18, 2016 GLYCATED HEMOGLOBIN TEST CPT-4 46948 January 18, 2016 [facility] VISIT ESTABLISHED PATIENT CPT-4 G0467 January 18, 2016 Vital Signs Date/Time: January 18, 2016 Cardiac Monitoring Heart Rate 72 bpm Weight 222 lbs Height 71 in BMI 30.96 Index Blood Pressure Diastolic 70 mmHg Blood Pressure Systolic 124 mmHg Results No Known Results Summary Purpose [employer] Submission
--- OUTSIDE RECORDS SUMMARY | 2018-10-01 08:58 | XMS REPORT ---
Author Author WHITNEY FAJARDO [facility] Address [address] [place] [address] Care Team Providers Care Cut Off Tender Glass Name Role Phone WHITNEY FAJARDO Unavailable PROBLEMS Type Condition ICD9-CM Code [id number] Code Onset Dates Condition Status SNOMED Code Problem Unspecified prostatitis 601.9 Active 2638343 Problem Right hand pain M79.641 Active 32778484 Problem Renal calculi N20.0 Active 32228452 Problem Diabetes mellitus type 2 in nonobese E11.9 Active 707686351 Problem Acute pain of right knee M25.561 Active 96195944 Problem Arthritis of right knee M19.90 Active 307543840 Problem Essential hypertension I10 Active 67183681 ALLERGIES Substance Reaction Event Type Date Status Glipizide 2.5 Mg Tablet Extended Release 24hr Unknown Non Drug Allergy May, Active ENCOUNTERS Encounter Location Date Diagnosis [facility] [id number] [place] [address] Dec, [facility] [id number] [place] [id number] Nov, [facility] [id number] [place] [id number] Nov, Bronchitis J40 [facility] [address] [id number] [address] October, Encounter for dental examination Z01.20 [facility] [id number] [place] [id number] May, Essential hypertension I10 and Arthritis of right knee M19.90 [facility] [id number] [place] [address] [id number] Jan, Essential hypertension I10 ; Diabetes mellitus type 2 in nonobese E11.9 and Screening for prostate cancer Z12.5 [facility] [id number] [place] [id number] Dec, Vertigo R42 and Essential hypertension I10 [place] [id number] [place] [id number] October, Acute cystitis with hematuria N30.01 and History of kidney stones Z87.442 [facility] [id number] [place] [id number] Jul, Essential hypertension I10 [place] [id number] [place] [id number] Jun, Right hand pain M79.641 and Essential hypertension I10 [facility] [id number] [place] [id number] Jun, Right hand pain M79.641 [place] [id number] [place] [id number] Apr, Arthritis of right knee M19.90 ; Right hand pain M79.641 ; Essential hypertension I10 and Diabetes mellitus type 2 in nonobese E11.9 [place] [id number] [place] [id number] Mar, Essential hypertension I10 and Renal calculi N20.[address] [id number] Feb, Essential hypertension I10 ; Arthritis of right knee M19.90 ; Insect bite , initial encounter W57.XXXA and Boil of lower extremity L02.429 [address] [id number] [place] [address] [id number] Feb, [place] [id number] [place] [address] [id number] Jan, Arthritis of right knee M19.90 and Essential hypertension I10 [address] [id number] [place] [address] [id number] Jan, Acute pain of right knee M25.561 [facility] [id number] [place] [id number] Jan, Acute pain of right knee M25.561 [facility] [place] [address] [id number] [id number] Dec, Acute pain of right knee M25.561 and Diabetes mellitus type 2 in nonobese E11.9 [facility] [address] [id number] [place] [address] Sep, [facility] [address] [facility] [id number] [place] [address] Sep, [facility] [id number] [place] [id number] May, [facility] [address] [id number] [place] [address] May, [facility] [address]65100[facility] [place] [address] Jan, [facility] [address] [id number] [place] [address] Jan, [facility] [address]00565100[place] [address] Jan, [facility] [address] [id number] [place] [id number] Jan, [facility] [address]00565100[place] [address] Jan, [facility] [address] [id number] [address] Jan, [facility] [id number] [place] [id number] Jan, [facility] [place] [facility] [address] [id number][place] [address] Jan, [facility] [place] [facility] [address] [facility] [id number][place] [address] Jan, [facility] [address] [id number] [place] [id number] Dec, [facility] [address] [id number] [address] Dec, [facility] [address] [id number] [place] [id number] Dec, [facility] [address] [facility] [id number][place] [address] Dec, [facility] [address] [id number] [place] [id number] Dec, [facility] [address] [facility] [id number][place] [address] Dec, [facility] [address] [id number] [place] [id number] Dec, [facility] [address] [facility] [id number][place] [address] Nov, [facility] [address] [id number] [place] [id number] Nov, [facility] [address] [facility] [id number][place] [address] October, [facility] [address] [id number] [place] [id number] October, [facility] [address] [id number] [place] [id number] Aug, [facility] [address] [id number] [place] [id number] Aug, [facility] [address] [id number] [place] [id number] Aug, [facility] [address] [id number] [place] [id number] Aug, [facility] [address] [id number] [place] [id number] Aug, [facility] [address] [id number] [place] [id number] Jun, [facility] [address] [id number] [place] [id number] Jun, [facility] [address] [id number] [place] [id number] Apr, [facility] [address] [facility] [id number][place] [address] Apr, [facility] [address] [id number] [place] [id number] Mar, [facility] [place] [facility] [address] [facility] [id number], [place] [address] Mar, [facility] [address] [id number] [place] [id number] Feb, [facility] [address] [id number] [place] [id number] Jan, [facility] [address] [id number] [place] [id number] October, [facility] [place] [facility] [address] [facility] [id number][place] [address] October, [facility] [address] [id number] [place] [id number] Jul, [facility] [address] [id number] [place] [id number] Jun, [facility] [place] [facility] [address] [id number] [address] Mar, [facility] [place] [facility] [address]00565100[place] [address] May, [facility] [place] [facility] [address] [id number] [address] May, [facility] [place] [facility] [address] [id number] [address] May, [facility] [place] [facility] [address] [id number] [address] Apr, [facility] [place] [facility] [address] [facility] [id number], [place] [address] Apr, [facility] [place] [facility] [address] [facility] [id number][place] [address] Apr, [facility] [place] [facility] [address] [id number] [address] Jan, [facility] [place] [facility] [address] [facility] [id number] [place] [address] October, [facility] [address] [facility] [id number][place] [address] Jul, [facility] [address] [id number] [address] Apr, [facility] [address] [id number] [address] Apr, [facility] [address] [id number] [address] Jan, [facility] [address] [id number] [address] Aug, IMMUNIZATIONS No Known Immunizations SOCIAL HISTORY Never Assessed REASON FOR VISIT Blood Pressure Cecelia SILVERMAN PLAN OF CARE Activity Details Follow Up prn Reason: VITAL SIGNS Height 71 in 2017-06-13 Weight 228.4 lbs 2017-06-13 Temperature 98.4 degrees Fahrenheit 2017-06-13 Heart Rate 90 bpm 2017-06-13 Respiratory Rate 18 2017-06-13 BMI 31.85 kg/m2 2017-06-13 Blood pressure systolic 130 mmHg 2017-06-13 Blood pressure diastolic 68 mmHg 2017-06-13 MEDICATIONS Unknown Medications RESULTS No Results PROCEDURES Procedure Date Ordered Result Body Site [facility] VISIT ESTABLISHED PATIENT Jun 13, 2017 INSTRUCTIONS MEDICATIONS ADMINISTERED No Known Medications [...]
--- OUTSIDE RECORDS SUMMARY | 2018-10-01 08:58 | XMS REPORT ---
Author Author WHITNEY FAJARDO [facility] Address [address] [place] [address] Care Team Providers Care Ham Rolling Machine Operator Name Role Phone WHITNEY FAJARDO Unavailable PROBLEMS Type Condition ICD9-CM Code [id number] Code Onset Dates Condition Status SNOMED Code Problem Unspecified prostatitis 601.9 Active 4634892 Problem Right hand pain M79.641 Active 10671235 Problem Renal calculi N20.0 Active 16832184 Problem Diabetes mellitus type 2 in nonobese E11.9 Active 956350522 Problem Acute pain of right knee M25.561 Active 15948858 Problem Arthritis of right knee M19.90 Active 806726289 Problem Essential hypertension I10 Active 39133036 ALLERGIES No Information SOCIAL HISTORY Never Assessed PLAN OF CARE VITAL SIGNS MEDICATIONS Medication Instructions Dosage Frequency Start Date End Date Duration Status Lisinopril 40 mg Orally Once a day 1 tablet 24h 0 days Active RESULTS No Results PROCEDURES No Known procedures IMMUNIZATIONS No Known Immunizations MEDICAL (GENERAL) HISTORY [...]
--- OUTSIDE RECORDS SUMMARY | 2018-10-01 08:58 | XMS REPORT ---
Author Author WHITNEY FAJARDO [facility] Address [address] [place] [address] Care Team Providers Care Contract Attorney Name Role Phone WHITNEY FAJARDO Unavailable PROBLEMS Type Condition ICD9-CM Code NNC25-CF Code Onset Dates Condition Status SNOMED Code Problem Urinary tract infection, site not specified 599.0 Active 07553799 Problem Pain in joint, lower leg 719.46 Active 700367950 Problem Diabetes mellitus without mention of complication, type II or unspecified type, not stated as uncontrolled 250.00 Active 005687611 Problem Renal calculi N20.0 Active 98837385 Problem Arthritis of right knee M19.90 Active 935373275 Problem Diabetes mellitus type 2 in nonobese E11.9 Active 204556033 Problem Dysuria 788.1 Active 63867175 Problem Essential hypertension I10 Active 26472177 Problem Acute pain of right knee M25.561 Active 42537882 Problem Bariatric surgery status V45.86 Active 954098096 Problem Chest pain, unspecified 786.50 Active 91886103 Problem Sprain and strain of unspecified site of hip and thigh 843.9 Active 80918881 Problem Abdominal pain, left lower quadrant 789.04 Active 285252748 Problem Unspecified prostatitis 601.9 Active 6317890 Problem Hematuria, unspecified 599.70 Active 55639069 ALLERGIES Unknown Allergies SOCIAL HISTORY No smoking Hx information available PLAN OF CARE VITAL SIGNS MEDICATIONS Unknown Medications RESULTS No Results PROCEDURES No Known procedures IMMUNIZATIONS No Known Immunizations
--- OUTSIDE RECORDS SUMMARY | 2018-10-01 08:59 | XMS REPORT | Continuity of Care Document ---
Author Organization Unknown Address Unknown Allergies Active Description Code Type Severity Reaction Onset Reported/Identified Relationship to Patient Clinical Status Yes glipizide 2.5 mg tablet extended release 24hr Drug Allergy 2011 Yes glipizide 2.5 mg tablet extended release 24hr Drug Allergy N/A N/A 2011 Yes No Known Drug Allergies [id number] Drug Allergy Unknown N/A 09/24/2018 Medications There is no data. Problems Date Dx Coded Attending Type Code Diagnosis Diagnosed By 08/23/2007 250.02 DIABETES MELLITUS POORLY CONTROLLED 08/23/2007 492.8 Emphysema Other 08/23/2007 786.2 Cough 08/23/2007 796.2 Blood Pressure Isolated Elevated 08/23/2007 250.02 DIABETES MELLITUS POORLY CONTROLLED 08/23/2007 492.8 Emphysema Other 08/23/2007 786.2 Cough 08/23/2007 796.2 Blood Pressure Isolated Elevated 08/23/2007 250.02 DIABETES MELLITUS POORLY CONTROLLED 08/23/2007 492.8 Emphysema Other 08/23/2007 786.2 Cough 08/23/2007 796.2 Blood Pressure Isolated Elevated 08/23/2007 250.02 DIABETES MELLITUS POORLY CONTROLLED 08/23/2007 492.8 Emphysema Other 08/23/2007 786.2 Cough 08/23/2007 796.2 Blood Pressure Isolated Elevated 08/23/2007 WHITNEY FAJARDO APRN 250.02 DIABETES MELLITUS POORLY CONTROLLED 08/23/2007 WHITNEY FAJARDO APRN 492.8 Emphysema Other 08/23/2007 WHITNEY FAJARDO APRN 786.2 Cough 08/23/2007 WHITNEY FAJARDO APRN 796.2 Blood Pressure Isolated Elevated 08/23/2007 250.02 DIABETES MELLITUS POORLY CONTROLLED 08/23/2007 492.8 Emphysema Other 08/23/2007 786.2 Cough 08/23/2007 796.2 Blood Pressure Isolated Elevated 08/23/2007 LORETO DAVIS DO 250.02 DIABETES MELLITUS POORLY CONTROLLED 08/23/2007 DAVIS DO, LORETO K 492.8 Emphysema Other 08/23/2007 DAVIS DO, LORETO K 786.2 Cough 08/23/2007 DAVIS DO, LORETO K 796.2 Blood Pressure Isolated Elevated 08/23/2007 SCOTTY RO, WHITNEY R 250.02 DIABETES MELLITUS POORLY CONTROLLED 08/23/[address], WHITNEY R 492.8 Emphysema Other 08/23/2007 SCOTTY JACOBN, WHITNEY R 786.2 Cough 08/23/2007 SCOTTY JACOBN, WHITNEY R 796.2 Blood Pressure Isolated Elevated 08/23/2007 SCOTTY JACOBN, WHITNEY R 250.02 DIABETES MELLITUS POORLY CONTROLLED 08/23/2007 SCOTTY JACOBN, WHITNEY R 492.8 Emphysema Other 08/23/2007 SCOTTY JACOBN, WHITNEY R 786.2 Cough 08/23/[address], WHITNEY R 796.2 Blood Pressure Isolated Elevated 01/02/2008 250.03 Diabetes 1 Uncontrolled 01/02/2008 272.4 HYPERLIPIDEMIA HYPERLIPOPROTEINEMIAS (Old Classification) 01/02/2008 278.01 OBESITY MORBID 01/02/2008 401.1 ESSENTIAL HYPERTENSION BENIGN 01/02/2008 535.50 Gastritis Unspec 01/02/2008 600.00 Bph W/o Obstructuion 01/02/2008 250.03 Diabetes 1 Uncontrolled 01/02/2008 272.4 HYPERLIPIDEMIA HYPERLIPOPROTEINEMIAS (Old Classification) 01/02/2008 278.01 OBESITY MORBID 01/02/2008 401.1 ESSENTIAL HYPERTENSION BENIGN 01/02/2008 535.50 Gastritis Unspec 01/02/2008 600.00 Bph W/o Obstructuion 01/02/2008 250.03 Diabetes 1 Uncontrolled 01/02/2008 272.4 HYPERLIPIDEMIA HYPERLIPOPROTEINEMIAS (Old Classification) 01/02/2008 278.01 OBESITY MORBID 01/02/2008 401.1 ESSENTIAL HYPERTENSION BENIGN 01/02/2008 535.50 Gastritis Unspec 01/02/2008 600.00 Bph W/o Obstructuion 01/02/2008 250.03 Diabetes 1 Uncontrolled 01/02/2008 272.4 HYPERLIPIDEMIA HYPERLIPOPROTEINEMIAS (Old Classification) 01/02/2008 278.01 OBESITY MORBID 01/02/2008 401.1 ESSENTIAL HYPERTENSION BENIGN 01/02/2008 535.50 Gastritis Unspec 01/02/2008 600.00 Bph W/o Obstructuion 01/02/2008 SCOTTY JACOBWHITNEY Bo R 250.03 Diabetes 1 Uncontrolled 01/02/2008 SCOTTY JACOBWHITNEY Bo R 272.4 HYPERLIPIDEMIA HYPERLIPOPROTEINEMIAS (Old Classification) 01/02/2008 FAJARDO WHITNEY RO R 278.01 OBESITY MORBID 01/02/2008 SCOTTY WHITNEY RO R 401.1 ESSENTIAL HYPERTENSION BENIGN 01/02/2008 SCOTTY JACOBWHITNEY Bo R 535.50 Gastritis Unspec 01/02/2008 SCOTTY JACOBWHITNEY Bo R 600.00 Bph W/o Obstructuion 01/02/2008 250.03 Diabetes 1 Uncontrolled 01/02/2008 272.4 HYPERLIPIDEMIA HYPERLIPOPROTEINEMIAS (Old Classification) 01/02/2008 278.01 OBESITY MORBID 01/02/2008 401.1 ESSENTIAL HYPERTENSION BENIGN 01/02/2008 535.50 Gastritis Unspec 01/02/2008 600.00 Bph W/o Obstructuion 01/02/2008 RYAN LIZARRAGA LORETO K 250.03 Diabetes 1 Uncontrolled 01/02/2008 RYAN LIZARRAGA LORETO K 272.4 HYPERLIPIDEMIA HYPERLIPOPROTEINEMIAS (Old Classification) 01/02/2008 RYAN LIZARRAGA LORETO K 278.01 OBESITY MORBID 01/02/2008 RYAN LIZARRAGA LORETO K 401.1 ESSENTIAL HYPERTENSION BENIGN 01/02/2008 RYAN LIZARRAGA LORETO K 535.50 Gastritis Unspec 01/02/2008 RYAN LIZARRAGA LORETO K 600.00 Bph W/o Obstructuion 01/02/2008 SCOTTY JACOBWHITNEY Bo R 250.03 Diabetes 1 Uncontrolled 01/02/2008 FAJARDOWHITNEY Gaffney APRN R 272.4 HYPERLIPIDEMIA HYPERLIPOPROTEINEMIAS (Old Classification) 01/02/2008 FAJARDOWHITNEY Gaffney APRN R 278.01 OBESITY MORBID 01/02/2008 FAJARDOWHITNEY Gaffney APRN R 401.1 ESSENTIAL HYPERTENSION BENIGN 01/02/2008 SCOTTY JACOBWHITNEY Bo R 535.50 Gastritis Unspec 01/02/2008 SCOTTY JACOBWHITNEY Bo R 600.00 Bph W/o Obstructuion 01/02/2008 FAJARDOWHITNEY Gaffney APRN R 250.03 Diabetes 1 Uncontrolled 01/02/2008 FAJARDOWHITNEY Gaffney APRN R 272.4 HYPERLIPIDEMIA HYPERLIPOPROTEINEMIAS (Old Classification) 01/02/2008 FAJARDOWHITNEY Gaffney APRN R 278.01 OBESITY MORBID 01/02/2008 WHITNEY FAJARDO APRN 401.1 ESSENTIAL HYPERTENSION BENIGN 01/02/2008 WHITNEY FAJARDO APRN 535.50 Gastritis Unspec 01/02/2008 WHITNEY FAJARDO APRN 600.00 Bph W/o Obstructuion 03/09/2008 493.90 ASTHMA UNSPECIFIED 03/09/2008 493.90 ASTHMA UNSPECIFIED 03/09/2008 493.90 ASTHMA UNSPECIFIED 03/09/2008 493.90 ASTHMA UNSPECIFIED 03/09/2008 WHITNEY FAJARDO APRN 493.90 ASTHMA UNSPECIFIED 03/09/2008 493.90 ASTHMA UNSPECIFIED 03/09/2008 LORETO DAVIS DO 493.90 ASTHMA UNSPECIFIED 03/09/2008 WHITNEY FAJARDO APRN 493.90 ASTHMA UNSPECIFIED 03/09/2008 WHITNEY FAJARDO APRN 493.90 ASTHMA UNSPECIFIED 06/08/2008 496 COPD 06/08/2008 496 COPD 06/08/2008 496 COPD 06/08/2008 496 COPD 06/08/2008 WHITNEY FAJARDO APRN 496 COPD 06/08/2008 496 COPD 06/08/2008 LORETO DAVIS DO 496 COPD 06/08/2008 WHITNEY FAJARDO APRN 496 COPD 06/08/2008 WHITNYE FAJARDO APRN 496 COPD 09/06/2008 789.00 Abdominal Pain Unspecified Site 09/06/2008 789.00 Abdominal Pain Unspecified Site 09/06/2008 789.00 Abdominal Pain Unspecified Site 09/06/2008 789.00 Abdominal Pain Unspecified Site 09/06/2008 WHITNEY FAJARDO APRN 789.00 Abdominal Pain Unspecified Site 09/06/2008 789.00 Abdominal Pain Unspecified Site 09/06/2008 LORETO DAVIS DO 789.00 Abdominal Pain Unspecified Site 09/06/2008 WHITNEY FAJARDO APRN 789.00 Abdominal Pain Unspecified Site 09/06/2008 WHITNEY FAJARDO APRN 789.00 Abdominal Pain Unspecified Site 09/14/2008 250.00 Diabetes Mellitus 09/14/2008 599.70 Hematuria, Unspecified 09/14/2008 250.00 Diabetes Mellitus 09/14/2008 599.70 Hematuria, Unspecified 09/14/2008 250.00 Diabetes Mellitus 09/14/2008 599.70 Hematuria, Unspecified 09/14/2008 250.00 Diabetes Mellitus 09/14/2008 599.70 Hematuria, Unspecified 09/14/2008 FAJARDO WHITNEY RO R 250.00 Diabetes Mellitus 09/14/2008 FAJARDO CUSTOM DESIGNER, WHITNEY R 599.70 Hematuria, Unspecified 09/14/2008 250.00 Diabetes Mellitus 09/14/2008 599.70 Hematuria, Unspecified 09/14/2008 DAVIS DO, LORETO K 250.00 Diabetes Mellitus 09/14/2008 DAVIS DO, LORETO K 599.70 Hematuria, Unspecified 09/14/2008 FAJARDO WHITNEY RO R 250.00 Diabetes Mellitus 09/14/2008 FAJARDO WHITNEY RO R 599.70 Hematuria, Unspecified 09/14/2008 FAJARDO WHITNEY RO R 250.00 Diabetes Mellitus 09/14/2008 FAJARDO CUSTOM DESIGNERWHITNEY Bo R 599.70 Hematuria, Unspecified 02/01/2009 278.00 OBESITY 02/01/2009 528.9 MOUTH PAIN 02/01/2009 278.00 OBESITY 02/01/2009 528.9 MOUTH PAIN 02/01/2009 278.00 OBESITY 02/01/2009 528.9 MOUTH PAIN 02/01/2009 278.00 OBESITY 02/01/2009 528.9 MOUTH PAIN 02/01/2009 WHITNEY FAJARDO APRN R 278.00 OBESITY 02/01/2009 FAJARDO WHITNEY RO R 528.9 MOUTH PAIN 02/01/2009 278.00 OBESITY 02/01/2009 528.9 MOUTH PAIN 02/01/2009 DAVIS OSMINA K 278.00 OBESITY 02/01/2009 DAVIS DO LORETO K 528.9 MOUTH PAIN 02/01/2009 FAJARDOWHITNEY LARIOS APRN R 278.00 OBESITY 02/01/2009 FAJARDO WHITNEY RO R 528.9 MOUTH PAIN 02/01/2009 WHITNEY FAJARDO APRN R 278.00 OBESITY 02/01/2009 FAJARDO WHITNEY RO R 528.9 MOUTH PAIN 08/09/2009 724.3 Neuritis Sciatic 08/09/2009 724.3 Neuritis Sciatic 08/09/2009 724.3 Neuritis Sciatic 08/09/2009 724.3 Neuritis Sciatic 08/09/2009 WHITNEY FAJARDO APRN 724.3 Neuritis Sciatic 08/09/2009 724.3 Neuritis Sciatic 08/09/2009 LORETO DAVIS DO 724.3 Neuritis Sciatic 08/09/2009 WHITNEY FAJARDO APRN 724.3 Neuritis Sciatic 08/09/2009 WHITNEY FAJARDO APRN 724.3 Neuritis Sciatic 11/07/2009 414.01 CAD 11/07/2009 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 Tract Symptoms (luts) 11/07/2009 414.01 CAD 11/07/2009 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 Tract Symptoms (luts) 11/07/2009 414.01 CAD 11/07/2009 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 Tract Symptoms (luts) 11/07/2009 414.01 CAD 11/07/2009 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 Tract Symptoms (luts) 11/07/2009 WHITNEY FAJARDO APRN 414.01 CAD 11/07/2009 WHITNEY FAJARDO APRN 600.01 Hypertrophy (benign) Of Prostate With Urinary Obstruction And Other Lower Urinary Tract Symptoms (luts) 11/07/2009 414.01 CAD 11/07/2009 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 Tract Symptoms (luts) 11/07/2009 LORETO DAVIS DO K 414.01 CAD 11/07/2009 LORETO DAVIS DO 600.01 Hypertrophy (benign) Of Prostate With Urinary Obstruction And Other Lower Urinary Tract Symptoms (luts) 11/07/2009 WHITNEY FAJARDO APRN 414.01 CAD 11/07/2009 WHITNEY FAJARDO APRN 600.01 Hypertrophy (benign) Of Prostate With Urinary Obstruction And Other Lower Urinary Tract Symptoms (luts) 11/07/2009 WHITNEY FAJARDO APRN 414.01 CAD 11/07/2009 WHITNEY FAJARDO APRN 600.01 Hypertrophy (benign) Of Prostate With Urinary Obstruction And Other Lower Urinary Tract Symptoms (luts) 02/09/2010 380.4 Impacted Cerumen 02/09/2010 380.4 Impacted Cerumen 02/09/2010 380.4 Impacted Cerumen 02/09/2010 380.4 Impacted Cerumen 02/09/2010 WHITNEY FAJARDO APRN 380.4 Impacted Cerumen 02/09/2010 380.4 Impacted Cerumen 02/09/2010 LORETO DAVIS DO 380.4 Impacted Cerumen 02/09/2010 WHITNEY FAJARDO APRN R 380.4 Impacted Cerumen 02/09/2010 WHITNEY FAJARDO APRN R 380.4 Impacted Cerumen 05/15/2010 719.46 Joint Pain, Localized In The Knee 05/15/2010 719.46 Joint Pain, Localized In The Knee 05/15/2010 719.46 Joint Pain, Localized In The Knee 05/15/2010 719.46 Joint Pain, Localized In The Knee 05/15/2010 WHITNEY FAJARDO APRN 719.46 Joint Pain, Localized In The Knee 05/15/2010 719.46 Joint Pain, Localized In The Knee 05/15/2010 LORETO DAVIS DO 719.46 Joint Pain, Localized In The Knee 05/15/2010 WHITNEY FAJARDO APRN 719.46 Joint Pain, Localized In The Knee 05/15/2010 WHITNEY FAJARDO APRN 719.46 Joint Pain, Localized In The Knee 05/25/2010 717.2 Derangement Of Posterior Horn Of Medial Meniscus 05/25/2010 717.2 Derangement Of Posterior Horn Of Medial Meniscus 05/25/2010 717.2 Derangement Of Posterior Horn Of Medial Meniscus 05/25/2010 717.2 Derangement Of Posterior Horn Of Medial Meniscus 05/25/2010 WHITNEY FAJARDO APRN 717.2 Derangement Of Posterior Horn Of Medial Meniscus 05/25/2010 717.2 Derangement Of Posterior Horn Of Medial Meniscus 05/25/2010 LORETO DAVIS DO 717.2 Derangement Of Posterior Horn Of Medial Meniscus 05/25/2010 WHITNEY FAJARDO APRN 717.2 Derangement Of Posterior Horn Of Medial Meniscus 05/25/2010 WHITNEY FAJARDO APRN 717.2 Derangement Of Posterior Horn Of Medial Meniscus 05/30/2010 V72.84 PRE- OPERATIVE EXAMINATION UNSPECIFIED 05/30/2010 V72.84 PRE- OPERATIVE EXAMINATION UNSPECIFIED 05/30/2010 V72.84 PRE- OPERATIVE EXAMINATION UNSPECIFIED 05/30/2010 V72.84 PRE- OPERATIVE EXAMINATION UNSPECIFIED 05/30/2010 WHITNEY FAJARDO APRN V72.84 PRE-OPERATIVE EXAMINATION UNSPECIFIED 05/30/2010 V72.84 PRE- OPERATIVE EXAMINATION UNSPECIFIED 05/30/2010 LORETO DAVIS DO K V72.84 PRE-OPERATIVE EXAMINATION UNSPECIFIED 05/30/2010 WHITNEY FAJARDO APRN V72.84 PRE-OPERATIVE EXAMINATION UNSPECIFIED 05/30/2010 WHITNEY FAJARDO APRN V72.84 PRE-OPERATIVE EXAMINATION UNSPECIFIED 12/14/2010 311 DEPRESSIVE DISORDER NOT ELSEWHERE CLASSIFIED 12/14/2010 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 12/14/2010 311 DEPRESSIVE DISORDER NOT ELSEWHERE CLASSIFIED 12/14/2010 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 12/14/2010 311 DEPRESSIVE DISORDER NOT ELSEWHERE CLASSIFIED 12/14/2010 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 12/14/2010 311 DEPRESSIVE DISORDER NOT ELSEWHERE CLASSIFIED 12/14/2010 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 12/14/2010 WHITNEY FAJARDO APRN 311 DEPRESSIVE DISORDER NOT ELSEWHERE CLASSIFIED 12/14/2010 WHITNEY FAJARDO APRN 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 12/14/2010 311 DEPRESSIVE DISORDER NOT ELSEWHERE CLASSIFIED 12/14/2010 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 12/14/2010 DAVIS LORETO LIZARRAGA K 311 DEPRESSIVE DISORDER NOT ELSEWHERE CLASSIFIED 12/14/2010 LORETO DAVIS DO K 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 12/14/2010 WHITNEY FAJARDO APRN 311 DEPRESSIVE DISORDER NOT ELSEWHERE CLASSIFIED 12/14/2010 WHITNEY FAJARDO APRN 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 12/14/2010 WHITNEY FAJARDO APRN 311 DEPRESSIVE DISORDER NOT ELSEWHERE CLASSIFIED 12/14/2010 WHITNEY FAJARDO APRN 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 10/26/2011 250.00 DIABETES MELLITUS WITHOUT MENTION OF COMPLICATION TYPE II OR UNSPECIFIED TYPE NOT STATED UNCONTROLLED 10/26/2011 719.46 PAIN IN JOINT INVOLVING LOWER LEG 10/26/2011 250.00 DIABETES MELLITUS WITHOUT MENTION OF COMPLICATION TYPE II OR UNSPECIFIED TYPE NOT STATED UNCONTROLLED 10/26/2011 719.46 PAIN IN JOINT INVOLVING LOWER LEG 10/26/2011 250.00 DIABETES MELLITUS WITHOUT MENTION OF COMPLICATION TYPE II OR UNSPECIFIED TYPE NOT STATED UNCONTROLLED 10/26/2011 719.46 PAIN IN JOINT INVOLVING LOWER LEG 10/26/2011 250.00 DIABETES MELLITUS WITHOUT MENTION OF COMPLICATION TYPE II OR UNSPECIFIED TYPE NOT STATED UNCONTROLLED 10/26/2011 719.46 PAIN IN JOINT INVOLVING LOWER LEG 10/26/2011 WHITNEY FAJARDO APRN 250.00 DIABETES MELLITUS WITHOUT MENTION OF COMPLICATION TYPE II OR UNSPECIFIED TYPE NOT STATED UNCONTROLLED 10/26/2011 WHITNEY FAJARDO APRN 719.46 PAIN IN JOINT INVOLVING LOWER LEG 10/26/2011 250.00 DIABETES MELLITUS WITHOUT MENTION OF COMPLICATION TYPE II OR UNSPECIFIED TYPE NOT STATED UNCONTROLLED 10/26/2011 719.46 PAIN IN JOINT INVOLVING LOWER LEG 10/26/2011 LORETO DAVIS DO 250.00 DIABETES MELLITUS WITHOUT MENTION OF COMPLICATION TYPE II OR UNSPECIFIED TYPE NOT STATED UNCONTROLLED 10/26/2011 LORETO DAVIS DO 719.46 PAIN IN JOINT INVOLVING LOWER LEG 10/26/2011 WHITNEY FAJARDO APRN 250.00 DIABETES MELLITUS WITHOUT MENTION OF COMPLICATION TYPE II OR UNSPECIFIED TYPE NOT STATED UNCONTROLLED 10/26/2011 WHITNEY FAJARDO APRN 719.46 PAIN IN JOINT INVOLVING LOWER LEG 10/26/2011 WHITNEY FAJARDO APRN 250.00 DIABETES MELLITUS WITHOUT MENTION OF COMPLICATION TYPE II OR UNSPECIFIED TYPE NOT STATED UNCONTROLLED 10/26/2011 WHITNEY FAJARDO APRN 719.46 PAIN IN JOINT INVOLVING LOWER LEG 11/08/2011 786.50 UNSPECIFIED CHEST PAIN 11/08/2011 786.50 UNSPECIFIED CHEST PAIN 11/08/2011 786.50 UNSPECIFIED CHEST PAIN 11/08/2011 786.50 UNSPECIFIED CHEST PAIN 11/08/2011 WHITNEY FAJARDO APRN 786.50 UNSPECIFIED CHEST PAIN 11/08/2011 786.50 UNSPECIFIED CHEST PAIN 11/08/2011 LORETO DAVIS DO 786.50 UNSPECIFIED CHEST PAIN 11/08/2011 WHITNEY FAJARDO APRN 786.50 UNSPECIFIED CHEST PAIN 11/08/2011 WHITNEY FAJARDO APRN 786.50 UNSPECIFIED CHEST PAIN 11/10/2012 601.9 PROSTATITIS UNSPECIFIED 11/10/2012 LORETO DAVIS DO 601.9 PROSTATITIS UNSPECIFIED 11/10/2012 FAJARDO CUSTOM DESIGNER, WHITNEY R 601.9 PROSTATITIS UNSPECIFIED 11/10/2012 FAJARDO CUSTOM DESIGNER, WHITNEY R 601.9 PROSTATITIS UNSPECIFIED 12/22/2012 LORETO DAVIS DO 788.1 DYSURIA 12/22/2012 FAJARDO CUSTOM DESIGNER, WHITNEY R 788.1 DYSURIA 12/22/2012 FAJARDO CUSTOM DESIGNER, WHITNEY Edgar 788.1 DYSURIA 02/04/2013 AMY ROMEO, JULIO CÉSAR Ronquillo Ot 592.1 CALCULUS OF URETER 02/04/2013 AMY ROMEO, JULIO CÉSAR Ronquillo Ot 594.1 BLADDER CALCULUS NEC 02/04/2013 AMY ROMEO, JULIO CÉSAR Ronquillo Ot 600.00 HYPERTROPHY (BENIGN) OF PROSTATE W/O URI 12/31/2013 LORETO DAVIS DO 599.0 URINARY TRACT INFECTION 12/31/2013 FAJARDO CUSTOM DESIGNERWHITNEY R 599.0 URINARY TRACT INFECTION 12/31/2013 FAJARDO CUSTOM DESIGNER, WHITNEY Edgar 599.0 URINARY TRACT INFECTION 01/14/2014 FAJARDO CUSTOM DESIGNER, WHITNEY Edgar 843.9 SPRAIN OF UNSPECIFIED SITE OF HIP AND THIGH 01/14/2014 FAJARDO CUSTOM DESIGNER, WHITNEY R 843.9 SPRAIN OF UNSPECIFIED SITE OF HIP AND THIGH 02/06/2014 FAJARDO CUSTOM DESIGNER, WHITNEY Edgar 599.70 HEMATURIA 02/06/2014 FAJARDO CUSTOM DESIGNERWHITNEY 789.04 ABDOMINAL PAIN LEFT LOWER QUADRANT 02/08/2014 FAJARDO CUSTOM DESIGNERWHITNEY Bo V45.86 BARIATRIC SURGERY STATUS 07/23/2018 WHITNEY FAJARDO CFSANJAY Ot D64.9 ANEMIA, UNSPECIFIED 07/23/2018 WHITNEY FAJARDO CFNP Ot D64.9 ANEMIA, UNSPECIFIED 07/24/2018 WHITNEY FAJARDO CFNP Ot D64.9 ANEMIA, UNSPECIFIED 07/24/2018 WHITNEY FAJARDO CFNP Ot D64.9 ANEMIA, UNSPECIFIED 07/24/2018 LORETO DAVIS DO Ot D64.9 ANEMIA, UNSPECIFIED 07/25/2018 LORETO DAVIS DO Ot D64.9 ANEMIA, UNSPECIFIED 07/25/2018 LORETO DAVIS DO Ot D64.9 ANEMIA, UNSPECIFIED 08/01/2018 FAJARDO, WHITNEY R CFNP Ot D64.9 ANEMIA, UNSPECIFIED 08/10/2018 FAJARDO, WHITNEY R CFNP Ot D64.9 ANEMIA, UNSPECIFIED 08/13/2018 FAJARDO, WHITNEY R CFNP Ot D64.9 ANEMIA, UNSPECIFIED 08/13/2018 FAJARDO, WHITNEY R CFNP Ot J98.4 OTHER DISORDERS OF LUNG 08/13/2018 FAJARDO, WHITNEY R CFNP Ot K57.30 DVRTCLOS OF LG INT W/O PERFORATION OR AB 08/13/2018 FAJARDO, WHITNEY R CFNP Ot K80.20 CALCULUS OF GALLBLADDER W/O CHOLECYSTITI 08/13/2018 FAJARDO, WHITNEY R CFNP Ot N20.0 CALCULUS OF KIDNEY 08/13/2018 FAJARDO, WHITNEY R CFNP Ot N21.0 CALCULUS IN BLADDER 08/13/2018 FAJARDO, WHITNEY R CFNP Ot N28.89 OTHER SPECIFIED DISORDERS OF KIDNEY AND 08/19/2018 FAJARDO, WHITNEY R CFNP Ot J98.4 OTHER DISORDERS OF LUNG 08/19/2018 FAJARDO, WHITNEY R CFNP Ot K57.30 DVRTCLOS OF LG INT W/O PERFORATION OR AB 08/19/2018 FAJARDO, WHITNEY R CFNP Ot K80.20 CALCULUS OF GALLBLADDER W/O CHOLECYSTITI 08/19/2018 FAJARDO, WHITNEY R CFNP Ot N20.0 CALCULUS OF KIDNEY 08/19/2018 FAJARDO, WHITNEY R CFNP Ot N21.0 CALCULUS IN BLADDER 08/19/2018 FAJARDO, WHITNEY R CFNP Ot N28.89 OTHER SPECIFIED DISORDERS OF KIDNEY AND 09/17/2018 JULIO CÉSAR REYES MD Ot N20.0 CALCULUS OF KIDNEY 09/17/2018 JULIO CÉSAR REYES MD Ot N21.0 CALCULUS IN BLADDER 09/17/2018 JULIO CÉSAR REYES MD Ot Z98.890 OTHER SPECIFIED POSTPROCEDURAL STATES 09/24/2018 TANIYA DESIR MD Ot Z01.818 ENCOUNTER FOR OTHER PREPROCEDURAL EXAMIN 09/30/2018 TANIYA DESIR MD Ot Z01.818 ENCOUNTER FOR OTHER PREPROCEDURAL EXAMIN Procedures Code Description [place] [id number] MICRO ALBUMIN-IN HOUSE 07/04/2012 33527 A1C (IN-HOUSE) 07/04/2012 52557 A1C (IN-HOUSE) 08/27/2012 42258 EKG, TRACING (IN-HOUSE) 09/08/2012 69922 ROUTINE VENIPUNCTURE 09/12/2012 06740 CBC 09/12/2012 35437 CMP 09/12/2012 94258 LIPID PANEL 09/12/2012 0701179 GFR CALC (RESULT ONLY) 09/12/2012 23547 A1C (RML) 09/12/2012 42817 UA LONG DIP 11/10/2012 72684 GLUCOSE FINGER STICK 11/10/2012 64521 CULTURE URINE 11/12/2012 74468 UA LONG DIP 11/26/2012 23019 CULTURE URINE 11/29/2012 35707 UA LONG DIP 12/31/2013 48470 GC/CHLAM PROBE (STATE) 12/31/2013 16318 A1C (IN-HOUSE) 12/31/2013 93160 UA LONG DIP 02/04/2014 84757 UA LONG DIP 02/06/2014 Results Test Result Range Pathologist review of blood test by comment - 07/23/18 06:50 Blood leukocytes automated count (number/volume) 5.0 10*3/uL 4.3-11.0 Blood erythrocytes automated count (number/volume) 3.85 10*6/uL 4.35-5.85 Venous blood hemoglobin measurement (mass/volume) 7.1 g/dL 13.3-17.7 Blood hematocrit (volume fraction) 27 % 40-54 Automated erythrocyte mean corpuscular volume 69 [foz_us] 80-99 Automated erythrocyte mean corpuscular hemoglobin (mass per erythrocyte) 18 pg 25-34 Automated erythrocyte mean corpuscular hemoglobin concentration measurement ( mass/volume) 27 g/dL 32-36 Automated erythrocyte distribution width ratio 20.5 % 10.0-14.5 Automated blood platelet count (count/volume) 306 10*3/uL 130-400 Automated blood platelet mean volume measurement 9.5 [foz_us] 7.4-10.4 Automated blood neutrophils/100 leukocytes 46 % 42-75 Automated blood lymphocytes/100 leukocytes 33 % 12-44 Blood monocytes/100 leukocytes 10 % NRG Automated blood eosinophils/100 leukocytes 7 % 0-10 Automated blood basophils/100 leukocytes 1 % 0-10 Blood neutrophils automated count (number/volume) 2.3 10*3 1.8-7.8 Blood lymphocytes automated count (number/volume) 1.7 10*3 1.0-4.0 Blood monocytes automated count (number/volume) 0.7 10*3 0.0-1.0 Automated eosinophil count 0.3 10*3/uL 0.0-0.3 Automated blood basophil count (count/volume) 0.1 10*3/uL 0.0-0.1 Manual blood segmented neutrophils/100 leukocytes 58 % NRG Blood band neutrophils/100 leukocytes 0 % NRG Manual blood lymphocytes/100 leukocytes 26 % NRG Manual eosinophils/100 leukocytes in nose 6 % NRG Manual blood basophils/100 leukocytes 0 % NRG Blood anisocytosis detection by light microscopy SLIGHT NRG Blood ovalocytes detection by light microscopy SLIGHT NRG Blood poikilocytosis detection by light microscopy SLIGHT NRG Blood hypochromia detection by light microscopy SLIGHT NRG Blood microcytes detection by light microscopy SLIGHT NRG Blood reticulocytes count (number/volume) 48 10*9/L 24- 90 Blood reticulocytes/100 erythrocytes 1.25 % 0.50-2.40 Serum or plasma folate measurement (mass/volume) - 07/23/18 06:50 Serum or plasma folate measurement (mass/volume) 14.2 % > =4.0 Serum iron and total iron binding capacity panel - 07/23/18 06:50 Serum or plasma iron measurement (mass/volume) 12 % 40- 180 Total iron binding capacity and transferrin saturation measurement 3 % 15-50 Iron binding capacity [mass/volume] in serum or plasma 396 % 280-380 UIBC (unsaturated iron binding capacity) 384 % 55-450 Serum or plasma ferritin measurement (mass/volume) 6.0 % 32.0-356.0 Cyanocobalamin measurement - 07/23/18 06:50 Vitamin B12 243 pg/mL 190-1100 RED CELLS LEUKO REDUCED AS1 - 07/24/18 09:05 RED CELLS LEUKO REDUCED AS1 TRANSFUSED 07/24/18 1226 NRG Blood type T Indirect antibody screen panel - 07/24/18 09:05 ABO+Rh group BP NRG Transfusion band number [id number] NRG Blood group antibody screen NEGATIVE NRG Whole blood hemoglobin and hematocrit panel - 07/24/18 14:55 Venous blood hemoglobin measurement (mass/volume) 8.0 g/dL 13.3-17.7 Blood hematocrit (volume fraction) 29 % 40-54 CBC - 09/10/18 16:20 WHITE BLOOD CELL COUNT 6.6 Thousand/uL 3.8-10.8 RED BLOOD CELL COUNT 4.42 Million/uL 4.20-5.80 HEMOGLOBIN 8.8 g/dL 13.2-17.1 HEMATOCRIT 31.3 % 38.5-50.0 MCV 70.8 fL 80.0-100.0 MCH 19.9 pg 27.0-33.0 MCHC 28.1 g/dL 32.0-36.0 RDW 19.3 % 11.0-15.0 PLATELET COUNT 311 Thousand/uL 140-400 MPV 11.1 fL 7.5-12.5 ABSOLUTE NEUTROPHILS 3716 cells/uL 8960-9715 ABSOLUTE LYMPHOCYTES 1782 cells/uL 850-3900 ABSOLUTE MONOCYTES 752 cells/uL 200-950 ABSOLUTE EOSINOPHILS 290 cells/uL 15-500 ABSOLUTE BASOPHILS 59 cells/uL 0-200 NEUTROPHILS 56.3 % NRG LYMPHOCYTES 27.0 % NRG MONOCYTES 11.4 % NRG EOSINOPHILS 4.4 % NRG BASOPHILS 0.9 % NRG CBC MORPHOLOGY NORMAL BMP - 09/18/18 12:15 GLUCOSE 195 mg/dL 65-99 UREA NITROGEN (BUN) 19 mg/dL 7-25 CREATININE 1.53 mg/dL 0.70-1.25 eGFR NON-AFR. RWANDAN 47 mL/min/1.73m2 > OR=60 eGFR 54 mL/min/1.73m2 > OR=60 BUN/CREATININE RATIO 12 (calc) 6-22 SODIUM 141 mmol/L 135-146 POTASSIUM 3.8 mmol/L 3.5-5.3 CHLORIDE 108 mmol/L 98-110 CARBON DIOXIDE 25 mmol/L 20-32 CALCIUM 8.6 mg/dL 8.6-10.3 PSA - 09/18/18 12:15 PSA, TOTAL 4.0 ng/mL < OR=4.0 TESTOSTERONE, FREE AND TOTAL - 09/18/18 12:15 TESTOSTERONE, TOTAL, LC/MS/MS 688 ng/dL 250-1100 TESTOSTERONE, FREE 64.7 pg/mL 46.0-224.0 TESTOSTERONE,BIOAVAILABLE 127.5 ng/dL 110.0-575.0 SEX HORMONE BINDING GLOBULIN 53 nmol/L 22-77 Encounters ACCT No. Visit Date/Time Discharge Status Pt. Type Provider Facility Loc./Unit Complaint [id number] 02/06/2014 11:11:00 02/06/2014 23:59:59 CLS Outpatient SCOTTY JACOBN WHITNEY Edgar [id number] 01/14/2014 09:06:00 01/14/2014 23:59:59 CLS Outpatient SCOTTY RO WHITNEY Edgar [id number] 12/31/2013 14:10:00 12/31/2013 23:59:59 CLS Outpatient LORETO DAVIS DO [id number] 08/27/2012 08:58:00 08/27/2012 23:59:59 CLS Outpatient SCOTTY RO WHITNEY Edgar [id number] 08/27/2012 08:58:00 08/27/2012 23:59:59 CLS Outpatient [id number] 07/04/2012 10:41:00 07/04/2012 23:59:59 CLS Outpatient [id number] 04/02/2012 10:47:00 04/02/2012 23:59:59 CLS Outpatient [id number] 04/02/2012 10:47:00 04/02/2012 23:59:59 CLS Outpatient [id number] 11/26/2012 15:00:00 Document Registration [id number] 09/18/2018 10:20:00 09/18/2018 23:59:59 CLS Outpatient SCOTTY JACOBN WHITNEY Edgar [facility] [id number] 09/18/2018 10:20:00 Document Registration [id number] 09/10/2018 16:00:00 Document Registration [id number] 09/24/2018 05:47:00 09/24/2018 10:24:00 DIS Outpatient TANIYA DESIR MD [facility] PREOP COLONOSCOPY [id number] 09/16/2018 12:29:00 09/16/2018 23:59:59 CLS Outpatient JULIO CÉSAR REYES MD [facility] RAD BILAT RENAL STONES [id number] 08/13/2018 11:31:00 08/13/2018 23:59:59 CLS Outpatient FAJARDOWHITNEY LARIOS CFSANJAY [facility] RAD HEMATURIA [id number] 07/24/2018 08:52:00 07/24/2018 15:10:00 DIS Outpatient LORETO DAVIS DO [facility] D64.9 ANEMIA [id number] 07/23/2018 06:35:00 07/23/2018 23:59:59 CLS Outpatient WHITNEY FAJARDO [facility] LAB ANEMIA D64.9 [id number] 02/04/2013 06:10:00 02/04/2013 10:00:00 DIS Outpatient AMY ROMEO, JULIO CÉSAR Ronquillo [facility] BLADDER STONES;RENAL STONES [id number] 01/29/2013 15:02:00 01/29/2013 23:59:59 CLS Outpatient [id number] 01/21/2013 14:22:00 01/21/2013 23:59:59 CLS Outpatient [id number] 01/09/2013 08:13:00 01/09/2013 23:59:59 CLS Outpatient [id number] 12/30/2012 09:38:00 12/30/2012 23:59:59 CLS Outpatient [id number] 10/01/2018 08:51:00 ACT Outpatient TANIYA DESIR MD [facility] ENDO ANEMIA/FAMILY HX COLON CA
[2018-10-01] MEDS ORDERED: NS IV 500 ML 500 ML IV PRN (09:05)
[2018-10-01] MEDS ORDERED: NS IV 500 ML 500 ML ONE (09:12)
[2018-10-01] MEDS ORDERED: LIDOCAINE JELLY 2% 6 ML SYRINGE TOP ONE (09:15)
[2018-10-01] MEDS ORDERED: fentaNYL INJECTION 100 MCG/2 ML AMP IVP ONE (09:15)
[2018-10-01] MEDS ORDERED: MIDAZOLAM 2 MG/2 ML (VERSED) VIAL IVP ONE (09:15)
[2018-10-01 09:31] VITALS: BP 160/95
--- NOTE | 2018-10-01 09:55 | Conscious Sedation/ASA ---
Conscious Sedation Pre-Proced Time 09:50 ASA Score 2 For ASA 3 and 4: Consider anesthesia and medical clearance. Also, for patients with a history of failed moderate sedation consider anesthesia. Airway Lungs Heart ASA score ASA 1: a normal healthy patient ASA 2: a patient with a mild systemic disease (mid diabetes, controlled hypertension, obesity ASA 3: a patient with a severe systemic disease that limits activity (angina , COPD, prior Myocardial infarction) ASA 4: a patient with an incapacitating disease that is a constant threat to life (CHF, renal failure) ASA 5: a moribund patient not expected to survive 24 hrs. (ruptured aneurysm) ASA 6: a declared brain- patient whose organs are being harvested. For emergent operations, add the letter E after the classification Mallampati Classification Grade 2 Sedation Plan Analgesia, Amnesia, Plan communicated to team members, Discussed options with patient/fam, Discussed risks with patient/fam The patient is an appropriate candidate to undergo the planned procedure, sedation, and anesthesia. The patient immediately re-assessed prior to indication. TANIYA DESIR MD Oct 01, 2018 09:55
--- NOTE | 2018-10-01 09:55 | Progress Note-Pre Operative ---
Pre-Operative Progress Note H&P Reviewed The H&P was reviewed, patient examined and no changes noted. Date Seen by Provider: Oct 01, 2018 Time Seen by Provider: 09:50 Date H&P Reviewed: Oct 01, 2018 Time H&P Reviewed: 09:50 Pre-Operative Diagnosis: screening/family hx colon ca TANIYA DESIR MD Oct 01, 2018 09:55
[2018-10-01] MEDS ORDERED: TAMS0.4C98 PO (09:57)
[2018-10-01] MEDS ORDERED: ACETAMINOPHEN 325 MG TABLET PO PRN (10:00)
[2018-10-01] MEDS ORDERED: morphine INJ 10 MG/ML 1ML (SYR OR VIAL) IV PRN (10:00)
[2018-10-01] MEDS ORDERED: HYDROcodone/APAP 5 MG/325 MG (LORTAB) TAB PO PRN (10:00)
[2018-10-01] MEDS ORDERED: ONDANSETRON 4 MG/2 ML (SDV) Z0FRAN IV PRN (10:00)
--- NOTE | 2018-10-01 10:01 | Discharge Inst-Surgical ---
D/C Lap Instructions-THANG Follow Up 5 years Activity as tolerated High Fiber Diet 25g or more per day Avoid Alcohol, Caffeine, Spicy [place] and Acid foods. Drink 64 fluid oz or more of fluids per day. Symptoms to Report: Fever over 101 degree F, Nausea/Vomiting If any problems/questions: Contact your physician or go to Emergency Room TANIYA DESIR MD Oct 01, 2018 10:01
[2018-10-01] MEDS ORDERED: LIDOCAINE JELLY 2% 6 ML SYRINGE ONE (10:37)
[2018-10-01] MEDS ORDERED: fentaNYL INJECTION 100 MCG/2 ML AMP ONE ×3 (10:37→11:14)
[2018-10-01] MEDS ORDERED: MIDAZOLAM 2 MG/2 ML (VERSED) VIAL ONE ×6 (10:38→11:17)
--- NOTE | 2018-10-01 11:52 | Progress Note-Post Operative ---
Post-Operative Progess Note Surgeon (s)/Commission Auditor (s) Surgeon TANIYA DESIR MD Commission Auditor: none Pre-Operative Diagnosis screening/family hx colon ca Post-Operative Diagnosis chronic stage 1 ext and int hemorrhoids, mild sigmoid diverticulosis, small HP polyp splenic flexure. Procedure & Operative Findings Date of Procedure 10/01/18 Procedure Performed/Findings Colonoscopy with bx. Anesthesia Type CS Estimated Blood Loss Estimated blood loss (mL): minimal Specimens/Packing Specimens Removed splenic flexure polyp TANIYA DESIR MD Oct 01, 2018 11:52
[2018-10-01 12:00] VITALS: BP 152/82
[2018-10-01 12:30] VITALS: BP 150/90
[2018-10-01 13:40] VITALS: BP 150/90
--- NOTE | 2018-10-01 15:50 | OPERATIVE REPORT ---
DATE OF SERVICE: 10/01/2018 ATTENDING CHEESE BLENDER: MITALI Alvarez PREOPERATIVE DIAGNOSIS: Screening colonoscopy with family history of colon cancer. POSTOPERATIVE DIAGNOSES: Mild chronic stage I external and internal hemorrhoids, mild sigmoid diverticulosis, small polyp at the splenic flexure approximately 2 mm in size. PROCEDURE: Colonoscopy with biopsy. SURGEON: Taniya Desir MD ANESTHESIA: Conscious sedation. ESTIMATED BLOOD LOSS: Minimal. FINDINGS: As above in the postop. DISPOSITION: The patient tolerated the procedure well. INDICATIONS: The patient is a 67-year-old male in need of a screening colonoscopy. He has not had a colonoscopy up to this point in his life. He also does not report any major issues with diarrhea nor constipation and no red blood per rectum nor any dark tarry stools. He is considered high risk due to a family history of colon cancer with his brother being diagnosed with the disease at around age 56. DESCRIPTION OF PROCEDURE: The patient was brought to the endoscopy suite, laid in left lateral decubitus position. After adequate IV pain and sedative medications and conscious sedation anesthesia, a digital rectal examination was performed. Mild chronic stage II external and internal hemorrhoids were identified, which were not actively edematous nor inflamed and no bleeding. Normal sphincter tone was felt and there were no palpable masses. Prostate gland was palpable and appeared normal. The endoscope was then intubated to the anus and rectum gently insufflated. The endoscope was then advanced to the valves of [place] in the rectum with no polyps or any neoplasms identified. Through the sigmoid colon, a mild sigmoid diverticulosis identified. There were no mucosal inflammatory changes to indicate any active diverticulitis. At the level of the splenic flexure, a small hyperplastic polyp I was identified, which was biopsied and destroyed using forceps and cautery. This polyp was approximately 2 mm in size. The endoscope was then advanced to the remainder of the transverse, ascending colon to the cecum, which were normal. The endoscope was then slowly withdrawn with taking a second look and suctioning of residual air with no additional findings. The patient tolerated the procedure well. We will recommend continuing medical management with a high fiber diet with at least 30 grams of fiber daily to promote soft stools on a daily basis. Due to his family history, We will recommend a followup colonoscopy every 5 years. Job ID: [id number] DocumentID: [id number] Dictated Date: 10/01/2018 11:42:44 Hauling Contractor Date: 10/01/2018 15:49:27 Dictated By: TANIYA DESIR MD
== END 2018-10-01 13:40 | disposition home or self-care (01) ==
LOC: ENDO 08:51
PROVIDERS: ATTEND Surgery
DX: Z12.11 Encounter for screening for malignant neoplasm of colon (principal); D12.4 Benign neoplasm of descending colon; K64.0 First degree hemorrhoids; K57.30 Diverticulosis of large intestine without perforation or abscess without bleeding; E66.01 Morbid (severe) obesity due to excess calories; I10 Essential (primary) hypertension; E11.9 Type 2 diabetes mellitus without complications; F32.9 Major depressive disorder, single episode, unspecified; Z80.0 Family history of malignant neoplasm of digestive organs; Z98.84 Bariatric surgery status; Z79.899 Other long term (current) drug therapy; Z68.34 Body mass index [BMI] 34.0-34.9, adult

== ENCOUNTER → 2018-12-08 | Outpatient (CLI) | payer MEDICARE ==
[~2018-12-08] MED LIST changes: +RT-ALBUTEROL SULF 2.5 MG/3 ML PRE-MIX VIAL INH ONE; +RT-ALBUTEROL SULF 2.5 MG/3 ML PRE-MIX VIAL ONE; +TAMS0.4C98 PO
[2018-12-08 10:36] LABS: CREATININE SERUM 1.62 MG/DL (0.60-1.30)
--- NOTE | 2018-12-08 13:04 | Diagnostic Imaging Report ---
PROCEDURE: CT chest without contrast. TECHNIQUE: Multiple contiguous axial images were obtained through the chest without the use of intravenous contrast. Auto Exposure Controls were utilized during the CT exam to meet ALARA standards for radiation dose reduction. INDICATION: Wheezing and cough. No prior studies are available for comparison. FINDINGS: No axillary lymphadenopathy is identified. Mediastinal and hilar evaluation is limited without intravenous contrast. There are coronary arterial calcifications. No pericardial or pleural fluid is identified. Parenchymal evaluation demonstrates minimal scarring in the medial aspect of the right lower lobe. No infiltrates are seen. No nodule or mass is detected. Upper abdomen demonstrates postsurgical changes to the stomach. There are small stones within the gallbladder. IMPRESSION: 1. Essentially unremarkable noncontrast CT of the chest. No parenchymal infiltrates or masses are seen. 2. Cholelithiasis. Dictated by: Dictated on workstation # [id number]
== END ==
LOC: RAD 09:57
PROVIDERS: ATTEND Nurse Practitioner Family
DX: J30.9 Allergic rhinitis, unspecified (principal); J40 Bronchitis, not specified as acute or chronic; K80.20 Calculus of gallbladder without cholecystitis without obstruction; Z98.890 Other specified postprocedural states
CPT/HCPCS: 36415; 71250; 82565; 84520; 94060; 94726; 94729

== ENCOUNTER → 2019-12-17 | Outpatient (CLI) | payer MEDICARE ==
[~2019-12-17] MED LIST changes: -RT-ALBUTEROL SULF 2.5 MG/3 ML PRE-MIX VIAL INH ONE; -RT-ALBUTEROL SULF 2.5 MG/3 ML PRE-MIX VIAL ONE; -TAMS0.4C98 PO; +TMSL.4C PO
[2019-12-17 15:46] LABS: POTASSIUM 4.2 MMOL/L (3.6-5.0)
[2019-12-17 15:48] LABS: CALCIUM 9.1 MG/DL (8.5-10.1)
[2019-12-17 15:52] LABS: CREATININE SERUM 2.37 MG/DL (0.60-1.30)
--- NOTE | 2019-12-17 15:57 | Diagnostic Imaging Report ---
EXAMINATION: Supine abdomen at 03:23 p.m. INDICATION: Nephrolithiasis. FINDINGS: Two views were obtained. The prior exam of 09/16/2018 noted bilateral nephrolithiasis and multiple bladder calculi. On this study, the laminated calcification overlying the right mid abdomen seen previously is again evident. This calcification measures approximately 4.2 cm as opposed to 3.5 cm on the prior exam. The small calculus overlying the left kidney seen previously is not well visualized on this study. The numerous bladder calculi noted previously are unchanged. The orthopedic hardware overlying the left pelvis and the surgical sutures in the left upper quadrant noted on the prior study are again visualized and no different. There is gas in both the large and small bowel in a nonspecific fashion. There is no sign of bowel obstruction. The osseous structures are intact. IMPRESSION: 1. The large calculus overlying the right mid abdomen seen previously is again evident as are the bladder calculi. The small calculus overlying the left kidney noted previously is difficult to appreciate however. 2. The bowel gas pattern is nonspecific. There is no acute abnormality identified. Dictated by: Dictated on workstation # [id number]
== END ==
LOC: RAD 15:04
PROVIDERS: ATTEND Urology
DX: N40.3 Nodular prostate with lower urinary tract symptoms (principal); N21.0 Calculus in bladder; N20.0 Calculus of kidney
CPT/HCPCS: 36415; 74018; 80048; 84153